=== PATIENT | female | born 1950 | race Caucasian/White ===

== ENCOUNTER → 2017-01-31 | Outpatient (CLI) | payer OTHER ==
[2017-01-07 22:38] VITALS: BP 119/72
--- NOTE | 2017-01-31 10:40 | RAD ---
HISTORY: Bilateral knee pain, fell 1 month ago Study: Two views right knee Comparison: None Findings: Normal alignment. No acute fracture or dislocation. The soft tissues are unremarkable. There are mi ld to moderate osteoarthritic changes present, with medial joint space narrowing and probable subcho ndral cystic changes. No joint effusion. IMPRESSION: 1. Degenerative changes of the right knee without acute abnormality Reported By:
--- NOTE | 2017-01-31 10:43 | RAD ---
HISTORY: Bilateral pain and swelling, fell 1 month ago Study: Three views left foot Comparison: None Findings: Normal alignment. No acute fracture or dislocation. The soft tissues are unremarkable. There are de generative changes at the 1st MTP joint. There is moderate calcaneal spurring. IMPRESSION: 1. Degenerative changes of the 1st MTP joint and moderate calcaneal spurring. No acute osseous abnor mality identified. Reported By:
--- NOTE | 2017-01-31 10:43 | RAD ---
HISTORY: Bilateral pain and swelling, fell 1 month ago Study: Three views right foot Comparison: None Findings: Normal alignment. No acute fracture or dislocation. The soft tissues are unremarkable. There are de generative changes of the 1st MTP joint and moderate calcaneal spurring noted. IMPRESSION: 1. Degenerative changes of the 1st MTP joint and moderate calcaneal spurring. No acute osseous abnor mality identified. Reported By:
--- NOTE | 2017-01-31 10:45 | RAD ---
HISTORY: Bilateral pain, fell 1 month ago Study: Left knee radiographs Comparison: None Findings: Normal alignment. No acute fracture or dislocation. The soft tissues are unremarkable. There are mi ld to moderate degenerative changes present with joint space narrowing in the medial compartment. IMPRESSION: 1. Mild to moderate degenerative changes without acute osseous abnormality. Reported By:
== END ==
LOC: RAD 09:26
PROVIDERS: ATTEND Physician Assistant
DX: M79.671 Pain in right foot (principal); M79.672 Pain in left foot; M25.561 Pain in right knee; M25.562 Pain in left knee
CPT/HCPCS: 73564; 73630

== ENCOUNTER → 2017-02-08 | Outpatient (CLI) | payer OTHER ==
[2017-01-07 22:38] VITALS: BP 119/72
--- NOTE | 2017-02-09 09:27 | MRI ---
HISTORY: Radiculopathy, low back pain Study: MRI lumbar spine without contrast Comparison: Rate radiograph 09/07/2011 Technique: Multiplanar multi-sequence MRI of the lumbar spine was obtained. Sagittal T1, sagittal T 2, and stir weighted images, axial T1, and axial T2 images were obtained. Findings: There is mild levo curvature of the lumbar spine. No abnormal cord or marrow signal identified. The conus of the cord terminates normally. There are postsurgical changes noted with unilateral left t ranspedicular screws at L4 and L5 with intervertebral disc spacer. Vertebral body heights are preser maria a. There is multilevel spondylosis and disc desiccation throughout the lumbar spine and visualized thoracic spine. T12 -- L1: No significant stenosis identified. L1 -- L2: There is a broad-based disc bulge and mild to moderate facet degenerative changes without significant stenosis identified. L2 -- L3: There is a broad-based disc bulge asymmetric to the right and moderate facet hypertrophic changes resulting in moderate right lateral recess and foraminal stenosis. L3 -- L4: There is a left transpedicular screw at L4 with associated susceptibility artifact at this level. There are facet degenerative changes as well as a broad-based disc bulge at this level. Ther e is mild to moderate right foraminal narrowing. L4 -- L5: There is disc spacer noted at this level. There is a left transpedicular screw at L5. No s ignificant stenosis identified. L5 -- S1: Facet degenerative changes and disc desiccation at this level without significant stenosis identified. IMPRESSION: 1. Postsurgical changes at L4-5 with unilateral left transpedicular screws and intervertebral disc s pacer in place. 2. Multilevel spondylosis and facet arthropathy with moderate right lateral recess and foraminal kofi nosis at L2-L3 and mild to moderate right foraminal stenosis at L3-L4. Reported By:
== END ==
LOC: RAD 09:53
PROVIDERS: ATTEND Orthopaedic Surgery Sports Medicine
DX: M54.16 Radiculopathy, lumbar region (principal)
CPT/HCPCS: 72148

== ENCOUNTER 2017-08-16 12:12 | Day surgery (SDC) | payer OTHER ==
[2017-08-16] MEDS ORDERED: NS 500 ML IV 500 ML IV ONE (12:29)
[2017-08-16] MEDS ORDERED: TETRACAINE 0.5% OPHTH 1 DOSE AFFEYE ONE ×5 (12:35→15:59)
[2017-08-16] MEDS ORDERED: VIGAMOX 0.5% OPHTH 1 DOSE AFFEYE ONE ×4 (12:36→16:07)
[2017-08-16] MEDS ORDERED: PROLENSA OPHTH 1 DOSE AFFEYE ONE (12:47)
[2017-08-16] MEDS ORDERED: ALPHAGAN-P OPHTH 1 DOSE AFFEYE ONE (12:48)
[2017-08-16] MEDS ORDERED: MYDRIACIL OPHTH 1 DOSE AFFEYE ONE ×4 (12:49→12:52)
[2017-08-16] MEDS ORDERED: AK-DILATE 2.5% OPHTH 1 DOSE OP ONE ×4 (12:49→12:52)
[2017-08-16] MEDS ORDERED: CYCLOGYL 1% OPHTH 1 DOSE OP ONE ×4 (12:49→12:52)
[2017-08-16] MEDS: VERSED ONE ×2 (15:13→15:34)
[2017-08-16] MEDS ORDERED: AK-DILATE 10% OPHTH 1 DOSE AFFEYE ONE (15:39)
[2017-08-16] MEDS ORDERED: BETADINE OPHTH SOLN 5% EACHEYE ONE (15:50)
[2017-08-16] MEDS ORDERED: DIPRIVAN VIAL ONE (15:55)
[2017-08-16] MEDS ORDERED: ADRENALINE CHL INJ IR ONE (16:01)
[2017-08-16] MEDS ORDERED: VISCOAT 0.5 ML IO ONE (16:01)
[2017-08-16] MEDS ORDERED: BSS OPHTH (PLAIN) 500 ML with VANCOMYCIN HCL 500 MG VIAL 25 MG, ADRENALINE CHL INJ 1 MG IR ONE ×3 (16:01)
[2017-08-16] MEDS ORDERED: XYLOCAINE-MPF 1% IJ ONE (16:01)
[2017-08-16] MEDS ORDERED: DUOVISC IO ONE (16:01)
[2017-08-16 16:36] VITALS: BP 137/66
== END 2017-08-16 16:40 | disposition home or self-care (01) ==
LOC: SURG1 12:12
PROVIDERS: ATTEND Ophthalmology
PROC: 08DK3ZZ Extraction of Left Lens, Percutaneous Approach (ICD-10-PCS; principal; 2017-08-16 20:45)
PROC: 08RK3JZ Replacement of Left Lens with Synthetic Substitute, Percutaneous Approach (ICD-10-PCS; principal; 2017-08-16 20:45)
DX: H25.12 Age-related nuclear cataract, left eye (principal); H25.012 Cortical age-related cataract, left eye; H52.222 Regular astigmatism, left eye
CPT/HCPCS: A4217; J0170; J2250; J3370; J3490

== ENCOUNTER 2017-08-28 14:35 | Emergency (ER) | payer OTHER ==
[2017-08-28 14:51] VITALS: BP 184/81; BMI 29.7
--- NOTE | 2017-08-28 15:41 | DR.GENAD ---
HPI - PCP Primary Care Physician: DR. MATTHEW - HPI Comment HPI Comment: Rt. rib pain - Complaint/Symptoms Chief Complaint:: PT STATES "THIS MORNING AROUND 10 I WENT TO WALK INTO THE [facility] AND I WENT TO STEP UP THE STAIRS AND I MISSED THE STEP, I FELL ON MY RIGHT SIDE AND LANDED ON MY LEFT. RIGHT NOW ITS HURTING ON MY RIBS THE MOST AND ITS GETTING HARDER TO BREATHE." She typically takes Hydrocone at home BID for spinal OA. She had taken a dose earlier today prior to the fall at [facility]. - Nurses notes reviewed Nurses Notes Review: Yes - Source History Provided: Patient, Family Member - Mode of Arrival Mode of Arrival: Ambulatory - Timing Onset of Chief Complaint: 08/28/17 Came on: Suddenly - Location Location: right upper ribs - Severity Severity: Severe - Modifying Factors Worsens:: movement, deep inspirations Improves:: staying still - Associated Signs and Symptoms Associated Signs and Symptoms: none PMH - PMH Past Medical History: Yes Past Medical History: Arthritis, COPD, CVA, Depression, Hypertension Past Surgical History: Yes Surgical History: Ortho Surgery Past Surgical History Comment: CATARACT REMOVAL LEFT EYE - Family History History of Family Medical Conditions: Yes Family Medical History: Cancer, [place] - Social History Does patient currently use any type of tobacco product: Yes Have you used tobacco products in the last 12 months: Yes Type of Tobacco Use: Cigarettes How many years tobacco product used: 40 Does any household member use tobacco: Yes Alcohol Use: None Do you use any recreational Drugs:: No Lives With: Family Lives Where: Home - infectious screening In the last 2 months have you had wt loss of >10#?: NO Have you had fever, night sweats or hemotysis?: No Have you traveled outside the country in the last 6 months?: No Isolation: Standard ROS - Review of Systems Eyes: No Symptoms Reported ENTM: No Symptoms Reported Respiratoy: No Symptoms Reported Cardiovascular: No Symptoms Reported Gastrointestinal/Abdominal: No Symptoms Reported Genitourinary: No Symptoms Reported Neurological: No Symptoms Reported Musculoskeletal: Rib(s) Integumentary: No Symptoms Reported Hematologic/Lymphatic: No Symptoms Reported Endocrine: No Symptoms Reported Psychiatric: No Symptoms Reported All Other Systems: Reviewed and Negative PE - Vital Signs Vitals: Temperature 97.7 F Pulse Rate 54 Respiratory Rate 24 Blood Pressure [Left Arm] 119/72 Blood Pressure [Right Arm] 141/64 Blood Pressure 184/81 O2 Sat by Pulse Oximetry 100 - General Limitations: No Limitations General Appearance: Alert, Other (pain related distress) - Head Head Exam: Normal Inspection - Eyes Eye exam: Normal Appearance, PERRL, EOMI - ENT ENT Exam: Normal Exam - Neck Neck Exam: Normal Inspection, Full ROM - Chest Chest Inspection: Normal Inspection, Symmetric Chest Wall Rise, Tenderness ( upper right ribs at anterior axillary line.) - Respiratory Respiratory Exam: Normal Lung Sounds Bilat - Cardiovascular Cardiovascular Exam: Regular Rate, Normal Rhythm - Abdominal Exam Abdominal Exam: Normal Inspection, Normal Bowel Sounds, Soft - Extremities Extremities Exam: Normal Inspection - Back Back Exam: Normal Inspection - Neurologic Neurological Exam: Alert, Oriented X3 - Psychiatric Psychiatric Exam: Normal Affect, Normal Mood - Skin Skin Exam: Warm, Dry, Intact, Normal Color Course - Education/Counseling Education/Counseling: Patient, Family Educated On: Treatment, Diagnosis, Prognosis, Needs for Follow Up ROR - XRAY XRAY Interpreted by: Radiologist (right rib series: no fracture) - Diagnosis Discharge Problem: Rib pain - Discharge Plan Disposition: 01 HOME, SELF-CARE Condition: Good - Follow ups/Referrals Follow ups/Referrals: Devin MATTHEW [Primary Care Provider] - 3 days - Instructions Instructions: Rib Contusion Additional Instructions: WEAR AMBER WRAP NEEDED FOR PAIN. FOLLOW UP WITH PRIMARY CARE DOCTOR IN 2-3 DAYS NEEDED.
[2017-08-28] MEDS ORDERED: NUBAIN INJ 10 IM ONE (16:05)
[2017-08-28] MEDS ORDERED: NUBAIN INJ 10 ONE (16:07)
--- NOTE | 2017-08-28 16:29 | RAD ---
HISTORY: 67-year-old female status post fall with right-sided rib pain. Study: Frontal view of the chest with four views of the ribs. Comparison: Chest radiograph 01/07/2017 Findings: The trachea is midline. The cardiac silhouette is unremarkable. The lungs are clear without focal c onsolidation, effusion or pneumothorax. Soft tissues are unremarkable. Osseous structures are unrema rkable. No radiographic evidence of rib fracture. IMPRESSION: 1. No acute cardiopulmonary disease. 2. No radiographic evidence of rib fracture. Reported By:
== END 2017-08-28 16:56 | disposition home or self-care (01) ==
LOC: ER 14:48
DX: R07.89 Other chest pain (principal)
CPT/HCPCS: 71111; 96372; 99282; 99283; J2300

== ENCOUNTER 2017-09-20 06:53 | Day surgery (SDC) | payer OTHER ==
[2017-09-20] MEDS ORDERED: TETRACAINE 0.5% OPHTH 1 DOSE AFFEYE ONE ×4 (07:00→10:23)
[2017-09-20] MEDS ORDERED: VIGAMOX 0.5% OPHTH 1 DOSE AFFEYE ONE ×5 (07:05→10:59)
[2017-09-20] MEDS ORDERED: PROLENSA OPHTH 1 DOSE AFFEYE ONE (07:16)
[2017-09-20] MEDS ORDERED: ALPHAGAN-P OPHTH 1 DOSE AFFEYE ONE (07:17)
[2017-09-20] MEDS ORDERED: CYCLOGYL 1% OPHTH 1 DOSE OP ONE ×3 (07:18→07:20)
[2017-09-20] MEDS ORDERED: MYDRIACIL OPHTH 1 DOSE AFFEYE ONE ×3 (07:18→07:20)
[2017-09-20] MEDS ORDERED: AK-DILATE 2.5% OPHTH 1 DOSE OP ONE ×3 (07:18→07:20)
[2017-09-20] MEDS ORDERED: NS 1/2 1000 ML IV 1,000 ML IV ONE (07:30)
[2017-09-20] MEDS ORDERED: VERSED ONE ×2 (07:43→10:45)
[2017-09-20] MEDS ORDERED: VERSED IVP ONE ×4 (07:58→10:25)
[2017-09-20] MEDS ORDERED: AK-DILATE 10% OPHTH 1 DOSE AFFEYE ONE ×2 (08:00→10:26)
[2017-09-20] MEDS ORDERED: BETADINE OPHTH SOLN 5% EACHEYE ONE (10:29)
[2017-09-20] MEDS ORDERED: ADRENALINE CHL INJ IJ ONE ×2 (10:44→10:48)
[2017-09-20] MEDS ORDERED: XYLOCAINE-MPF 1% IJ ONE ×2 (10:44→10:48)
[2017-09-20] MEDS ORDERED: DUOVISC IO ONE ×2 (10:44→10:48)
[2017-09-20] MEDS ORDERED: BSS OPHTH (PLAIN) 500 ML with VANCOMYCIN HCL 500 MG VIAL 25 MG, ADRENALINE CHL INJ 1 MG IR ONE ×6 (10:45)
[2017-09-20 11:20] VITALS: BP 150/70
== END 2017-09-20 11:23 | disposition home or self-care (01) ==
LOC: SURG1 06:53
PROVIDERS: ATTEND Ophthalmology
PROC: 08DJ3ZZ Extraction of Right Lens, Percutaneous Approach (ICD-10-PCS; principal; 2017-09-20 10:30)
PROC: 08RJ3JZ Replacement of Right Lens with Synthetic Substitute, Percutaneous Approach (ICD-10-PCS; principal; 2017-09-20 10:30)
DX: H25.11 Age-related nuclear cataract, right eye (principal); H25.011 Cortical age-related cataract, right eye; H52.211 Irregular astigmatism, right eye
CPT/HCPCS: A4217; J0170; J2250; J3370

== ENCOUNTER 2017-11-13 16:55 | Inpatient (IN) | payer OTHER ==
[2017-11-13] MEDS ORDERED: NORMODYNE INJ 20 MG VIAL ONE ×2 (17:04→17:37)
[2017-11-13] MEDS ORDERED: NITROSTAT SL ONE (17:05)
[2017-11-13] MEDS: NITROSTAT SL PRN ×3 (17:07→17:22)
[2017-11-13] MEDS ORDERED: ASPIRIN 81 MG CHEWTAB ONE (17:28)
[2017-11-13] MEDS ORDERED: ASPIRIN 81 MG CHEWTAB PO ONE (17:28)
[2017-11-13 17:34] LABS: BASOPHILS # (AUTO) 0.1 X10^3/uL (0.0-0.1); BASOPHILS % (AUTO) 0.9 % (0.2-1.0); EOSINOPHILS # (AUTO) 0.1 x10^3/uL (0.0-0.2); EOSINOPHILS % (AUTO) 0.8 % (0.9-2.9); HEMATOCRIT 42.6 % (36.0-47.0); HEMOGLOBIN 14.2 g/dL (12.0-16.0); LYMPHOCYTES # (AUTO) 3.1 X10^3/uL (1.3-2.9); LYMPHOCYTES % (AUTO) 31.8 % (21.0-51.0); MEAN CORPUSCULAR HEMOGLOBIN 28.8 pg (27.0-34.0); MEAN CORPUSCULAR HGB CONC 33.4 g/dL (33.0-35.0); MEAN CORPUSCULAR VOLUME 86.2 fL (80.0-100.0); MEAN PLATELET VOLUME 8.2 fL (7.4-11.0); MONOCYTES # (AUTO) 0.5 x10^3/uL (0.3-0.8); MONOCYTES % (AUTO) 5.3 % (0.0-13.0); NEUTROPHILS % (AUTO) 61.2 % (42.0-75.0); PLATELET COUNT 289 X10^3/uL (150.0-450.0); RED BLOOD COUNT 4.94 X10^6/uL (3.5-5.4); RED CELL DISTRIBUTION WIDTH 15.6 % (11.6-16.5); WHITE BLOOD COUNT 9.9 X10^3/uL (3.6-10.0)
[2017-11-13] MEDS ORDERED: NORMODYNE INJ 20 MG VIAL IVP ONE (17:36)
--- NOTE | 2017-11-13 17:40 | RAD ---
Examination: Portable AP chest History: Chest pain Comparison 08/28/2017. Findings: Continued normal heart size with clear lungs and pleural spaces. Impression: No change; no acute disease. Reported By:
[2017-11-13 17:47] LABS: BLOOD UREA NITROGEN 7 mg/dL (7-18); CALCIUM 9.7 mg/dL (8.5-10.1); CARBON DIOXIDE 28.3 mmol/L (21-32); CHLORIDE 104 mmol/L (98-107); CREATININE 0.93 mg/dL (0.55-1.02); SODIUM 140 mmol/L (136-145); TROPONIN I < 0.02 ng/mL (0-1.5); eGFR BLACK RACES > 60 (>60); eGFR NON BLACK RACES > 60 (>60)
[2017-11-13 17:51] LABS: ALANINE AMINOTRANSFERASE 18 Units/L (12-78); ALBUMIN 3.7 g/dL (3.4-5.0); ALKALINE PHOSPHATASE 137 Units/L (46-116); ASPARTATE AMINO TRANSFERASE 16 Units/L (15-37); CKMB % 1.4 % (<4); CREATINE KINASE 70 Units/L (26-192); TOTAL PROTEIN 7.2 g/dL (6.4-8.2)
--- NOTE | 2017-11-13 18:30 | DR.CP ---
HPI - Time Seen Time seen: 17:50 - PCP Primary Care Physician: TIFF - Complaint Chief Complaint Doctor Comments: Patient presents stating that she has chest is hurting, has a headache and lots of stress. She states that she helps with her daughter children who has lost her job, her son son was layed off his job after Thanksgiving. She reports that she has no history of heart disease;admits to COPD and back pain. Her blood pressure 236/105 Chief Complaint:: PT. C/O RIGHT SIDED CHEST PAIN X 3 WEEKS WHICH WORSENED TODAY. PT. STATES THE PAIN RADIATES DOWN HER RIGHT ARM AND HER RIGHT HAND IS TINGLING. PT. STATES "IT FEELS LIKE A TON OF BRICKS ON MY CHEST." - Source History Provided: Patient - Mode of Arrival Mode of Arrival: Ambulatory - Timing Onset of Chief Complaint: 10/23/17 PMH - PMH Past Medical History: Yes Past Medical History: Arthritis, COPD, CVA, Depression, Hypertension Past Surgical History: Yes Surgical History: Ortho Surgery - Family History History of Family Medical Conditions: Yes Family Medical History: Cancer, [place] - Social History Does patient currently use any type of tobacco product: Yes Have you used tobacco products in the last 12 months: Yes Type of Tobacco Use: Cigarettes Does any household member use tobacco: No Alcohol Use: None Do you use any recreational Drugs:: No Lives With: Family Lives Where: Home - infectious screening In the last 2 months have you had wt loss of >10#?: NO Have you had fever, night sweats or hemotysis?: No Have you traveled outside the country in the last 6 months?: No Isolation: Standard ROS - Review of Systems Constitutional: No Symptoms Reported Eyes: No Symptoms Reported ENTM: No Symptoms Reported Respiratoy: No Symptoms Reported Cardiovascular: No Symptoms Reported Gastrointestinal/Abdominal: No Symptoms Reported Genitourinary: No Symptoms Reported Neurological: No Symptoms Reported Musculoskeletal: No Symptoms Reported Integumentary: No Symptoms Reported Hematologic/Lymphatic: No Symptoms Reported Endocrine: No Symptoms Reported Psychiatric: No Symptoms Reported All Other Systems: Reviewed and Negative PE - Vitals Vitals: Temperature 97.7 F Pulse Rate [Apical] 65 Pulse Rate 96 Respiratory Rate 22 Blood Pressure [Left Arm] 119/72 Blood Pressure [Right Arm] 200/90 Blood Pressure 236/109 O2 Sat by Pulse Oximetry 98 - General Limitations: No Limitations General Appearance: Alert, In No Apparent Distress - Head Head Exam: Normal Inspection, Atraumatic - Eyes Eye exam: Normal Appearance, PERRL, EOMI - ENT ENT Exam: Normal Exam - Chest Chest Inspection: Normal Inspection - Respiratory Respiratory Exam: Normal Lung Sounds Bilat Respiratory Exam: Bilateral Clear to Auscultation - Cardiovascular Cardiovascular Exam: Regular Rate, Normal Rhythm Pulse: Normal Edema: Normal - Abdominal Exam Abdominal Exam: Normal Inspection Abdominal Tenderness: negative: RUQ, RLQ, LUQ, LLQ, Epigastrium, Suprapubic, Diffuse, Mild, Moderate, Severe, Other - Extremities Extremities Exam: Normal Inspection, Full ROM - Back Back Exam: Normal Inspection, Full ROM - Neurologic Neurological Exam: Alert, Oriented X3, CN II-XII Intact - Psychiatric Psychiatric Exam: Normal Affect - Skin Skin Exam: Warm, Dry, Intact Course - Treatment Treatment: Patient blood pressure has been fluctuating; not controlled on parenterial pressure management. - Reevaluation 1st: Unchanged - Consultation Called: 18:30 (Dr Ortega agreed to genna for further management) ROR - Labs Reviewed Result Diagrams: 11/13/17 17:05 11/13/17 17:05 Laboratory: WBC 9.9 X10^3/uL (3.6-10.0) 11/13/17 17:05 RBC 4.94 X10^6/uL (3.5-5.4) 11/13/17 17:05 Hgb 14.2 g/dL (12.0-16.0) 11/13/17 17:05 Hct 42.6 % (36.0-47.0) 11/13/17 17:05 MCV 86.2 fL (80.0-100.0) 11/13/17 17:05 MCH 28.8 pg (27.0-34.0) 11/13/17 17:05 MCHC 33.4 g/dL (33.0-35.0) 11/13/17 17:05 RDW 15.6 % (11.6-16.5) 11/13/17 17:05 Plt Count 289 X10^3/uL (150.0-450.0) 11/13/17 17:05 MPV 8.2 fL (7.4-11.0) 11/13/17 17:05 Neut % 61.2 % (42.0-75.0) 11/13/17 17:05 Lymph % 31.8 % (21.0-51.0) 11/13/17 17:05 [place] % 5.3 % (0.0-13.0) 11/13/17 17:05 Eos % 0.8 % (0.9-2.9) L 11/13/17 17:05 Baso % 0.9 % (0.2-1.0) 11/13/17 17:05 Neut # 6.0 x10^3/uL (2.2-4.8) H 11/13/17 17:05 Lymph # 3.1 X10^3/uL (1.3-2.9) H 11/13/17 17:05 [place] # 0.5 x10^3/uL (0.3-0.8) 11/13/17 17:05 Eos # 0.1 x10^3/uL (0.0-0.2) 11/13/17 17:05 Baso # 0.1 X10^3/uL (0.0-0.1) 11/13/17 17:05 Absolute Nucleated RBC 0.1 /100WBC 11/13/17 17:05 INR Target Range - 11/13/17 17:05 INR 0.96 (0.8-1.3) 11/13/17 17:05 PTT 29.9 SECONDS (22.9-36.5) 11/13/17 17:05 PTT Comment - 11/13/17 17:05 D-Dimer 159 ng/mL (0-400) 11/13/17 17:05 Sodium 140 mmol/L (136-145) 11/13/17 17:05 Corrected Sodium TNP 11/13/17 17:05 Potassium 3.7 mmol/L (3.5-5.1) 11/13/17 17:05 Chloride 104 mmol/L (98-107) 11/13/17 17:05 Carbon Dioxide 28.3 mmol/L (21-32) 11/13/17 17:05 BUN 7 mg/dL (7-18) 11/13/17 17:05 Creatinine 0.93 mg/dL (0.55-1.02) 11/13/17 17:05 Est GFR (MDRD) Af Amer > 60 (>60) 11/13/17 17:05 Est GFR (MDRD) Non-Af > 60 (>60) 11/13/17 17:05 Glucose 96 mg/dL (65-99) 11/13/17 17:05 Calcium 9.7 mg/dL (8.5-10.1) 11/13/17 17:05 Corrected Calcium TNP 11/13/17 17:05 Total Bilirubin 0.40 mg/dL (0.2-1.0) 11/13/17 17:05 AST 16 Units/L (15-37) 11/13/17 17:05 ALT 18 Units/L (12-78) 11/13/17 17:05 Alkaline Phosphatase 137 Units/L (46-116) H 11/13/17 17:05 Creatine Kinase 70 Units/L (26-192) 11/13/17 17:05 CK-MB (CK-2) 1.0 ng/mL (0-4.0) 11/13/17 17:05 CK/CKMB % Calc 1.4 % (<4) 11/13/17 17:05 Troponin I < 0.02 ng/mL (0-1.5) 11/13/17 17:05 Total Protein 7.2 g/dL (6.4-8.2) 11/13/17 17:05 Albumin 3.7 g/dL (3.4-5.0) 11/13/17 17:05 Globulin 3.5 g/dL (2.5-4.5) 11/13/17 17:05 Albumin/Globulin Ratio 1.1 Ratio (1.1-2.1) 11/13/17 17:05 - XRAY XRAY Interpreted by: Radiologist (Chest: No acute disease) - EKG Compared to prior EKG Dated: 01/07/17 (No significant change) - Diagnosis Discharge Problem: Hypertensive urgency - Discharge Plan Condition: Stable - Follow ups/Referrals Follow ups/Referrals: Devin MTATHEW [Primary Care Provider] - 3 days - Instructions
[2017-11-13] MEDS ORDERED: MORPHINE SULFATE INJ 10 MG IVP ONE (19:20)
[2017-11-13] MEDS ORDERED: DEMEROL INJ IVP ONE (19:23)
[2017-11-13] MEDS ORDERED: DEMEROL INJ ONE (19:25)
[2017-11-13] MEDS ORDERED: NS 250 ML IV 250 ML IV ONE (19:44)
[2017-11-13] MEDS ORDERED: NORMODYNE INJ 100 MG VIAL ONE ×2 (19:46→19:49)
[2017-11-13] MEDS: NORMODYNE INJ 100 MG VIAL 250 MG in NS 250 ML IV 200 ML IV PRN (19:57)
[2017-11-13 22:07] LABS: BILIRUBIN,URINE NEGATIVE (NEGATIVE); BLOOD/HEMOGLOBIN,URINE 2+ (NEGATIVE); GLUCOSE, URINE NEGATIVE (NEGATIVE); KETONES,URINE 1+ (NEGATIVE); LEUKOCYTE ESTERASE ,URINE 1+ (NEGATIVE); NITRITES,URINE NEGATIVE (NEGATIVE); PROTEIN,URINE NEGATIVE (NEGATIVE); UROBILINOGEN,URINE 1+ (NORMAL)
[2017-11-13] MEDS ORDERED: NS 1/2 1000 ML IV 1,000 ML IV ONE (22:09)
[2017-11-13 22:19] LABS: APPEARANCE,URINE CLEAR (CLEAR); BACTERIA,URINE NEGATIVE /HPF (NEGATIVE); COLOR,URINE YELLOW (YELLOW); SQUAMOUS EPITHELIAL CELL,UR FEW /HPF (NEGATIVE)
[2017-11-13 22:51] VITALS: BMI 25.4
[2017-11-13] MEDS ORDERED: PREVNAR 13 IM ONE (22:51)
[2017-11-13] MEDS: NS 1/2 1000 ML IV 1,000 ML IV SCH (23:01)
[2017-11-13 23:09] LABS: CREATINE KINASE 51 Units/L (26-192); CREATINE KINASE MB < 1.0 ng/mL (0-4.0); TROPONIN I < 0.02 ng/mL (0-1.5)
[2017-11-14] MEDS: NORMODYNE INJ 100 MG VIAL 250 MG in NS 250 ML IV 200 ML IV PRN ×3 (00:06→08:48)
[2017-11-14 06:27] LABS: BASOPHILS % (AUTO) 0.7 % (0.2-1.0); EOSINOPHILS # (AUTO) 0.1 x10^3/uL (0.0-0.2); EOSINOPHILS % (AUTO) 1.4 % (0.9-2.9); HEMATOCRIT 36.3 % (36.0-47.0); HEMOGLOBIN 12.2 g/dL (12.0-16.0); LYMPHOCYTES % (AUTO) 31.3 % (21.0-51.0); MEAN CORPUSCULAR HGB CONC 33.5 g/dL (33.0-35.0); MEAN CORPUSCULAR VOLUME 86.4 fL (80.0-100.0); MEAN PLATELET VOLUME 8.4 fL (7.4-11.0); MONOCYTES # (AUTO) 0.4 x10^3/uL (0.3-0.8); NEUTROPHILS # (AUTO) 3.9 x10^3/uL (2.2-4.8); NEUTROPHILS % (AUTO) 60.6 % (42.0-75.0); PLATELET COUNT 232 X10^3/uL (150.0-450.0); RED CELL DISTRIBUTION WIDTH 15.5 % (11.6-16.5); WHITE BLOOD COUNT 6.4 X10^3/uL (3.6-10.0)
[2017-11-14 06:32] LABS: ALANINE AMINOTRANSFERASE 15 Units/L (12-78); ALKALINE PHOSPHATASE 108 Units/L (46-116); ASPARTATE AMINO TRANSFERASE 14 Units/L (15-37); BLOOD UREA NITROGEN 8 mg/dL (7-18); CALCIUM 8.7 mg/dL (8.5-10.1); CARBON DIOXIDE 25.2 mmol/L (21-32); CHLORIDE 107 mmol/L (98-107); CKMB % 1.7 % (<4); COR CA(FOR HYPOALB) 9.5 mg/dL (8.5-10.1); CREATINE KINASE 59 Units/L (26-192); CREATINE KINASE MB < 1.0 ng/mL (0-4.0); CREATININE 0.83 mg/dL (0.55-1.02); MAGNESIUM 1.8 mg/dL (1.7-2.9); SODIUM 142 mmol/L (136-145); TOTAL PROTEIN 5.9 g/dL (6.4-8.2); TROPONIN I < 0.02 ng/mL (0-1.5); eGFR BLACK RACES > 60 (>60); eGFR NON BLACK RACES > 60 (>60)
--- NOTE | 2017-11-14 07:23 | RAD ---
Examination: Portable AP chest History: Chest pain Comparison 11/13/2017 Findings: Continued normal heart size with clear lungs and pleural spaces. Impression no change separate acute disease demonstrated. Reported By:
[2017-11-14] MEDS: NORCO 10/325 TAB PO SCH ×4 (08:04→20:40)
[2017-11-14] MEDS: XANAX PO SCH ×2 (08:05→20:40)
[2017-11-14] MEDS ORDERED: NS 250 ML IV 250 ML IV ONE (08:43)
[2017-11-14] MEDS ORDERED: ZESTRIL TAB 20 MG ONE (12:29)
[2017-11-14] MEDS: ASPIRIN EC 81 MG PO SCH (12:35)
[2017-11-14] MEDS: ZESTRIL TAB 20 MG PO SCH (12:36)
[2017-11-14] MEDS ORDERED: MILK OF MAGNESIA PO PRN (13:00)
[2017-11-14] MEDS ORDERED: PHENERGAN TAB 25 MG PO PRN (15:21)
[2017-11-14] MEDS: CATAPRES TAB 0.2 MG PO SCH (20:40)
[2017-11-14] MEDS: COLACE CAP 100 MG PO SCH ×2 (21:00)
[2017-11-14] MEDS: NS 1/2 1000 ML IV 1,000 ML IV SCH (21:00)
[2017-11-15] MEDS ORDERED: ZESTRIL TAB 20 MG ONE (08:57)
[2017-11-15] MEDS ORDERED: ZESTRIL TAB 20 MG PO SCH (09:00)
[2017-11-15] MEDS: XANAX PO SCH ×2 (09:01→20:52)
[2017-11-15] MEDS: ZESTRIL TAB 20 MG PO SCH (09:01)
[2017-11-15] MEDS: CATAPRES TAB 0.2 MG PO SCH (09:02)
[2017-11-15] MEDS: NORCO 10/325 TAB PO SCH ×4 (09:02→20:53)
[2017-11-15] MEDS: ASPIRIN EC 81 MG PO SCH (09:02)
[2017-11-15] MEDS ORDERED: ZESTRIL TAB 10 MG PO ONE (09:18)
[2017-11-15] MEDS: CATAPRES TAB 0.3 MG PO SCH ×2 (17:33→23:29)
[2017-11-15] MEDS: COLACE CAP 100 MG PO SCH (20:52)
[2017-11-16] MEDS ORDERED: ZESTRIL TAB 20 MG ONE (07:16)
[2017-11-16] MEDS: NORCO 10/325 TAB PO SCH ×4 (08:11→20:53)
[2017-11-16] MEDS: XANAX PO SCH ×2 (08:12→20:52)
[2017-11-16] MEDS: CATAPRES TAB 0.3 MG PO SCH ×2 (08:12→20:53)
[2017-11-16] MEDS: ASPIRIN EC 81 MG PO SCH (08:13)
[2017-11-16] MEDS ORDERED: ZESTRIL TAB 20 MG PO SCH (09:00)
[2017-11-16] MEDS ORDERED: ZESTRIL TAB 10 MG PO NR (10:00)
[2017-11-16] MEDS: NORVASC TAB 10 MG PO SCH (15:09)
[2017-11-16] MEDS: ZANTAC PO SCH (15:10)
[2017-11-16] MEDS: PriLOSEC PO SCH (15:10)
[2017-11-16] MEDS ORDERED: DIOVAN TAB 160 MG PO ONE (18:09)
[2017-11-16] MEDS: COLACE CAP 100 MG PO SCH (20:53)
[2017-11-17 05:57] LABS: BASOPHILS % (AUTO) 0.6 % (0.2-1.0); EOSINOPHILS # (AUTO) 0.2 x10^3/uL (0.0-0.2); EOSINOPHILS % (AUTO) 3.3 % (0.9-2.9); HEMATOCRIT 35.5 % (36.0-47.0); HEMOGLOBIN 11.8 g/dL (12.0-16.0); LYMPHOCYTES # (AUTO) 2.7 X10^3/uL (1.3-2.9); LYMPHOCYTES % (AUTO) 36.3 % (21.0-51.0); MEAN CORPUSCULAR HEMOGLOBIN 29.1 pg (27.0-34.0); MEAN CORPUSCULAR HGB CONC 33.3 g/dL (33.0-35.0); MEAN CORPUSCULAR VOLUME 87.4 fL (80.0-100.0); MEAN PLATELET VOLUME 7.9 fL (7.4-11.0); MONOCYTES # (AUTO) 0.4 x10^3/uL (0.3-0.8); NEUTROPHILS % (AUTO) 53.8 % (42.0-75.0); PLATELET COUNT 216 X10^3/uL (150.0-450.0); RED BLOOD COUNT 4.06 X10^6/uL (3.5-5.4); RED CELL DISTRIBUTION WIDTH 15.3 % (11.6-16.5); WHITE BLOOD COUNT 7.5 X10^3/uL (3.6-10.0)
[2017-11-17 06:04] LABS: ALANINE AMINOTRANSFERASE 16 Units/L (12-78); ALBUMIN 2.7 g/dL (3.4-5.0); ALKALINE PHOSPHATASE 94 Units/L (46-116); ASPARTATE AMINO TRANSFERASE 11 Units/L (15-37); BLOOD UREA NITROGEN 11 mg/dL (7-18); CALCIUM 8.5 mg/dL (8.5-10.1); CARBON DIOXIDE 28.5 mmol/L (21-32); CHLORIDE 106 mmol/L (98-107); COR CA(FOR HYPOALB) 9.5 mg/dL (8.5-10.1); CREATININE 0.77 mg/dL (0.55-1.02); SODIUM 141 mmol/L (136-145); TOTAL PROTEIN 5.6 g/dL (6.4-8.2); eGFR BLACK RACES > 60 (>60); eGFR NON BLACK RACES > 60 (>60)
[2017-11-17] MEDS: ASPIRIN EC 81 MG PO SCH (08:55)
[2017-11-17] MEDS: NORVASC TAB 10 MG PO SCH (08:56)
[2017-11-17] MEDS: CATAPRES TAB 0.3 MG PO SCH (08:56)
[2017-11-17] MEDS: NORCO 10/325 TAB PO SCH (08:56)
[2017-11-17] MEDS: PriLOSEC PO SCH (08:56)
[2017-11-17] MEDS: XANAX PO SCH (08:56)
[2017-11-17] MEDS: ZANTAC PO SCH (08:57)
[2017-11-17] MEDS ORDERED: ZESTRIL TAB 40 MG PO SCH (09:00)
[2017-11-17 11:33] VITALS: BP 168/72
[2017-11-17] MEDS ORDERED: PREVNAR 13 IM ONE (11:52)
== END 2017-11-17 12:15 | disposition home health service (06) | DRG 305 ==
LOC: ER 16:55 → ICU 20:16 → UNDOADMIN 20:16 → MED/SURG 11-15 16:02
PROVIDERS: ADMIT Internal Medicine; ATTEND Internal Medicine
PROC: 3E0234Z Introduction of Serum, Toxoid and Vaccine into Muscle, Percutaneous Approach (ICD-10-PCS; principal; 2017-11-17)
DX: I16.0 Hypertensive urgency (principal); R07.89 Other chest pain; R51 Headache; J44.9 Chronic obstructive pulmonary disease, unspecified; M54.89 Other dorsalgia; R94.31 Abnormal electrocardiogram [ECG] [EKG]; Z66 Do not resuscitate; Z23 Encounter for immunization
CPT/HCPCS: 36415; 71045; 80053; 81001; 82550; 82553; 83735; 84484; 85025; 85378; 85610; 85730; 93005; 93010; 94760; 96365; 96374; 96375; 99284; 99285; A4222; Q0169; J2175; J3490

== ENCOUNTER 2018-07-11 18:36 | Observation (INO) ==
--- NOTE | 2018-07-11 19:16 | DR.CP ---
HPI Time Seen Time Seen by Provider: 07/11/18 19:06 PCP Primary Care Physician: kathi HPI Comment HPI Comment: PATINT IS DRAIN FO ENERGY, NO FEVER OR DYSURIA. BP IS ALSO ELEVATED. TOOK CODEINE FOR PAIN BEFORE COMING. CHEST PAIN IS PRECORDIAL PAIN THAT IS NON RADIATING ASSOCIATED WITH SOB. ABDOMINAL PAIN IS DIFFUSE ASSOCIATED WITH NAUSEA. HERE VIA EMS. Complaint Chief Complaint Doctor Comments: CHEST PAIN LOWER ABDOMINAL PAIN AND HEADACHE THAT IS GETTING WORSE. Chief Complaint:: PT STATES" I'M HURTING IN MY CHEST MY LOWER ABD REALLY I'M HURTING ALLOVER. I TOLD DR MATTHEW BUT HE DIDN'T DO ANYTHING. I JUST FEEL TERRIBLE MY HEAD IS KILLING ME I TOOK A CLONIDINE 0.3MG BECAUSE MY BLOOD PRESSURE WAS HIGH" Reviewed Nurses Notes Review: Yes Source History Provided: Patient and Family Member Mode of Arrival Mode of Arrival: EMS Timing Onset of Chief Complaint: 07/04/18 Came on: Gradually Pain: Present Now Duration Duration: Constant Duration: Days Location Location of Chest Pain: Left and Chest Chest Pain Radiation Location: None Context Onset: At rest Cardiac Risk Factors: HTN PE Risk Factors: Immobilization History of: None Prehospital Care: Oxygen Quality Quality: Sharp Severity Severity: Moderate Modifying Factors Worsens: Nothing Impoves: Nothing Associated Signs and Symptoms Associated Signs and Symptoms: Shortness of Breath, Abdominal Pain and Nausea/ Vomiting PMH PMH Past Medical History: Yes Past Medical History: Arthritis, COPD, CVA, Depression and Hypertension Past Surgical History: Yes Surgical History: Ortho Surgery Family History History of Family Medical Conditions: Yes Family Medical History: Cancer, Coronary Artery Disease and Hypertension Social History Type of Tobacco Use: Cigarettes Does any household member use tobacco: No Alcohol Use: None Do you use any recreational Drugs:: No Lives With: Family Lives Where: Home infectious screening In the last 2 months have you had wt loss of >10#?: NO Have you had fever, night sweats or hemotysis?: No Have you traveled outside the country in the last 6 months?: No Isolation: Standard ROS Review of Systems Constitutional: Malaise, Weakness and Fatigue; negative Chills and Fever Eyes: No Symptoms Reported ENTM: No Symptoms Reported Respiratoy: Non-Productive Cough and Short of Breath Cardiovascular: Chest Pain Gastrointestinal/Abdominal: Abdominal Pain Genitourinary: negative Dysuria Neurological: Headache, Weakness and Dizziness Musculoskeletal: Back Pain and Back Integumentary: No Symptoms Reported Hematologic/Lymphatic: Easy Bleeding and Easy Bruising Endocrine: No Symptoms Reported Psychiatric: Other (SLOW SPEECH) All Other Systems: Reviewed and Negative Unable to Obtain Due To: Altered mental status PE Vitals Vitals: Temperature 98.1 F Pulse Rate [Right Brachial] 62 Pulse Rate [Apical] 58 Pulse Rate 63 Respiratory Rate 20 Blood Pressure [Left Arm] 193/79 Blood Pressure [Right Arm] 175/75 Blood Pressure 176/74 O2 Sat by Pulse Oximetry 98 General Limitations: Altered Mental Status General Appearance: Alert and In No Apparent Distress Head Head Exam: Normal Inspection and Atraumatic Eyes Eye exam: Normal Appearance, PERRL and EOMI; negative Scleral Icterus and Conjunctival Injection ENT ENT Exam: Normal Exam, Normal Oropharynx, Normal External Ear Exam, Mucous Membranes Moist and TM's Normal Bilaterally Chest Chest Inspection: Normal Inspection and Symmetric Chest Wall Rise Respiratory Respiratory Exam: Normal Lung Sounds Bilat Respiratory Exam: Bilateral: Rhonchi and Lower: Rhonchi Cardiovascular Cardiovascular Exam: Regular Rate and Normal Rhythm Pulse: Normal, Radial and Femoral Edema: Normal Abdominal Exam Abdominal Exam: Normal Inspection, Normal Bowel Sounds, Soft and Tenderness Abdominal Tenderness: RLQ, LLQ, Suprapubic and Moderate Extremities Extremities Exam: Normal Inspection Back Back Exam: Paraspinal Tenderness Neurologic Neurological Exam: Alert, Oriented X3, CN II-XII Intact and Other (SPEECH SLOW PER DAUGHTER.); negative Motor Sensory Deficit Psychiatric Psychiatric Exam: Anxious Skin Skin Exam: Dry MDM Differential Diagnosis Differential Diagnosis: Angina, Chest Wall Pain, CHF, Costochondritis, Gastritis , Myocardial Infarction, Pericarditis, Pleuritis, Pancreatitis, Pneumonia, Pneumothorax and Pulmonary Embolus COURSE Treatment Treatment: SEE ORDERS. Consultation Consultation Comments: DISCUSS PATIENT WITH DR. PATEL. HE WILL ADMIT PATIENT. Education/Counseling Education/Counseling: Patient, Family and Education Educated On: Diagnosis ROR Labs Reviewed Laboratory Results Reviewed?: Yes Result Diagrams: 07/12/18 04:00 07/12/18 04:00 Laboratory: WBC 7.5 X10^3/uL (3.6-10.0) 07/12/18 04:00 RBC 4.28 X10^6/uL (3.5-5.4) 07/12/18 04:00 Hgb 12.6 g/dL (12.0-16.0) 07/12/18 04:00 Hct 37.1 % (36.0-47.0) 07/12/18 04:00 MCV 86.8 fL (80.0-100.0) 07/12/18 04:00 MCH 29.4 pg (27.0-34.0) 07/12/18 04:00 MCHC 33.8 g/dL (33.0-35.0) 07/12/18 04:00 RDW 15.6 % (11.6-16.5) 07/12/18 04:00 Plt Count 251 X10^3/uL (150.0-450.0) 07/12/18 04:00 MPV 7.8 fL (7.4-11.0) 07/12/18 04:00 Neut % (Auto) 51.0 % (42.0-75.0) 07/12/18 04:00 Lymph % (Auto) 39.0 % (21.0-51.0) 07/12/18 04:00 [place] % (Auto) 6.6 % (0.0-13.0) 07/12/18 04:00 Eos % (Auto) 3.0 % (0.9-2.9) H 07/12/18 04:00 Baso % (Auto) 0.4 % (0.2-1.0) 07/12/18 04:00 Neut # (Auto) 3.8 x10^3/uL (2.2-4.8) 07/12/18 04:00 Lymph # (Auto) 2.9 X10^3/uL (1.3-2.9) 07/12/18 04:00 [place] # (Auto) 0.5 x10^3/uL (0.3-0.8) 07/12/18 04:00 Eos # (Auto) 0.2 x10^3/uL (0.0-0.2) 07/12/18 04:00 Baso # (Auto) 0.0 X10^3/uL (0.0-0.1) 07/12/18 04:00 Absolute Nucleated RBC 0.1 /100WBC 07/12/18 04:00 Sodium 143 mmol/L (136-145) 07/12/18 04:00 Corrected Sodium TNP 07/12/18 04:00 Potassium 4.5 mmol/L (3.5-5.1) 07/12/18 04:00 Chloride 107 mmol/L (98-107) 07/12/18 04:00 Carbon Dioxide 31.9 mmol/L (21-32) 07/12/18 04:00 BUN 7 mg/dL (7-18) 07/12/18 04:00 Creatinine 0.90 mg/dL (0.55-1.02) 07/12/18 04:00 Est GFR (MDRD) Af Amer > 60 (>60) 07/12/18 04:00 Est GFR (MDRD) Non-Af > 60 (>60) 07/12/18 04:00 Glucose 96 mg/dL (65-99) 07/12/18 04:00 Calcium 8.7 mg/dL (8.5-10.1) 07/12/18 04:00 Corrected Calcium 9.3 mg/dL (8.5-10.1) 07/12/18 04:00 Magnesium 2.9 mg/dL (1.7-2.9) 07/12/18 04:00 Total Bilirubin 0.40 mg/dL (0.2-1.0) 07/12/18 04:00 AST 11 Units/L (15-37) L 07/12/18 04:00 ALT 12 Units/L (12-78) 07/12/18 04:00 Alkaline Phosphatase 105 Units/L (46-116) 07/12/18 04:00 Creatine Kinase 60 Units/L (26-192) 07/12/18 04:00 CK-MB (CK-2) < 1.0 ng/mL (0-4.0) 07/12/18 04:00 CK/CKMB % Calc 1.7 % (<4) 07/12/18 04:00 Troponin I < 0.02 ng/mL (0-1.5) 07/12/18 04:00 Total Protein 6.2 g/dL (6.4-8.2) L 07/12/18 04:00 Albumin 3.2 g/dL (3.4-5.0) L 07/12/18 04:00 Globulin 3.0 g/dL (2.5-4.5) 07/12/18 04:00 Albumin/Globulin Ratio 1.1 Ratio (1.1-2.1) 07/12/18 04:00 Triglycerides 183 mg/dL (0-150) H 07/12/18 04:00 Cholesterol 179 mg/dL (0-200) 07/12/18 04:00 LDL Cholesterol, Calc 90 mg/dL (0-100) 07/12/18 04:00 HDL Cholesterol 52 mg/dL (40-60) 07/12/18 04:00 Cholesterol/HDL Ratio 3.4 (0.0-5.0) 07/12/18 04:00 Specimen Type Clean catch urine 07/11/18 23:54 Urine Color Pale yellow (YELLOW) 07/11/18 23:54 Urine Appearance Clear (CLEAR) 07/11/18 23:54 Urine pH 8.0 (5.0 - 8.0) 07/11/18 23:54 Ur Specific [place] 1.010 (1.000-1.030) 07/11/18 23:54 Urine Protein Negative (NEGATIVE) 07/11/18 23:54 Urine Glucose (UA) Negative (NEGATIVE) 07/11/18 23:54 Urine Ketones Negative (NEGATIVE) 07/11/18 23:54 Urine Occult Blood 1+ (NEGATIVE) 07/11/18 23:54 Urine Nitrite Negative (NEGATIVE) 07/11/18 23:54 Urine Bilirubin Negative (NEGATIVE) 07/11/18 23:54 Urine Urobilinogen Normal (NORMAL) 07/11/18 23:54 Ur Leukocyte Esterase Negative (NEGATIVE) 07/11/18 23:54 Urine RBC 0-2 /HPF (NONE SEEN) 07/11/18 23:54 Urine WBC None seen /HPF (NONE SEEN) 07/11/18 23:54 Ur Squamous Epith Cells Moderate /HPF (NEGATIVE) 07/11/18 23:54 Urine Bacteria Trace /HPF (NEGATIVE) 07/11/18 23:54 Ur Culture Indicated? No/not indicated 07/11/18 23:54 Ethyl Alcohol mg/dL < 3 mg/dL (0-19.9) 07/11/18 19:17 XRAY XRAY Interpreted by: Radiologist XRAY Findings: REPORT DISCUSS WITH PATIENT. EKG Rhythm: NSR Block: LBBB ST: Nonsp Diagnosis Discharge Problem: Chest pain, Abdominal pain
[2018-07-11 19:25] LABS: BASOPHILS # (AUTO) 0.1 X10^3/uL (0.0-0.1); BASOPHILS % (AUTO) 1.1 % (0.2-1.0); EOSINOPHILS # (AUTO) 0.2 x10^3/uL (0.0-0.2); EOSINOPHILS % (AUTO) 2.1 % (0.9-2.9); HEMOGLOBIN 12.8 g/dL (12.0-16.0); LYMPHOCYTES # (AUTO) 2.9 X10^3/uL (1.3-2.9); LYMPHOCYTES % (AUTO) 33.2 % (21.0-51.0); MEAN CORPUSCULAR HEMOGLOBIN 28.9 pg (27.0-34.0); MEAN CORPUSCULAR HGB CONC 33.7 g/dL (33.0-35.0); MEAN CORPUSCULAR VOLUME 85.6 fL (80.0-100.0); MEAN PLATELET VOLUME 7.5 fL (7.4-11.0); MONOCYTES # (AUTO) 0.4 x10^3/uL (0.3-0.8); MONOCYTES % (AUTO) 4.9 % (0.0-13.0); NEUTROPHILS # (AUTO) 5.2 x10^3/uL (2.2-4.8); NEUTROPHILS % (AUTO) 58.7 % (42.0-75.0); PLATELET COUNT 252 X10^3/uL (150.0-450.0); RED BLOOD COUNT 4.44 X10^6/uL (3.5-5.4); RED CELL DISTRIBUTION WIDTH 15.7 % (11.6-16.5); WHITE BLOOD COUNT 8.8 X10^3/uL (3.6-10.0)
[2018-07-11] MEDS ORDERED: PEPCID 20 MG IV PREMIX* 20 MG/50 ML BAG IV ONE (19:46)
[2018-07-11 19:47] LABS: ALANINE AMINOTRANSFERASE 13 Units/L (12-78); ALBUMIN 3.5 g/dL (3.4-5.0); ALKALINE PHOSPHATASE 109 Units/L (46-116); ASPARTATE AMINO TRANSFERASE 11 Units/L (15-37); BLOOD UREA NITROGEN 7 mg/dL (7-18); CALCIUM 8.8 mg/dL (8.5-10.1); CARBON DIOXIDE 28.1 mmol/L (21-32); CHLORIDE 102 mmol/L (98-107); CKMB % 1.4 % (<4); CREATINE KINASE 71 Units/L (26-192); SODIUM 138 mmol/L (136-145); TOTAL PROTEIN 6.6 g/dL (6.4-8.2); TROPONIN I < 0.02 ng/mL (0-1.5); eGFR NON BLACK RACES > 60 (>60)
[2018-07-11] MEDS ORDERED: ASPIRIN 81 MG CHEWTAB ONE (19:48)
[2018-07-11] MEDS: ASPIRIN 81 MG CHEWTAB PO ONE (19:54)
[2018-07-11] MEDS ORDERED: NIFEDIPINE CAP 10 MG ONE (20:03)
[2018-07-11] MEDS ORDERED: NIFEDIPINE CAP 10 MG PO ONE (20:03)
[2018-07-11] MEDS ORDERED: K-LYTE EFFERVESCENT PO ONE (20:05)
[2018-07-11 20:25] LABS: BILIRUBIN,URINE NEGATIVE (NEGATIVE); BLOOD/HEMOGLOBIN,URINE 2+ (NEGATIVE); GLUCOSE, URINE NEGATIVE (NEGATIVE); KETONES,URINE NEGATIVE (NEGATIVE); LEUKOCYTE ESTERASE ,URINE 1+ (NEGATIVE); NITRITES,URINE NEGATIVE (NEGATIVE); PROTEIN,URINE NEGATIVE (NEGATIVE); UROBILINOGEN,URINE NORMAL (NORMAL)
[2018-07-11 20:27] LABS: APPEARANCE,URINE CLEAR (CLEAR); COLOR,URINE STRAW (YELLOW)
[2018-07-11 20:34] LABS: BACTERIA,URINE TRACE /HPF (NEGATIVE); SQUAMOUS EPITHELIAL CELL,UR RARE /HPF (NEGATIVE)
[2018-07-11] MEDS ORDERED: K-LYTE EFFERVESCENT ONE (20:34)
[2018-07-11] MEDS ORDERED: TORADOL 30 MG VIAL IVP ONE (22:27)
[2018-07-11] MEDS ORDERED: TORADOL 30 MG VIAL ONE (22:28)
[2018-07-11] MEDS: NS 1000 ML 1,000 ML IV SCH (22:54)
[2018-07-11 23:41] LABS: MAGNESIUM 1.8 mg/dL (1.7-2.9)
[2018-07-11 23:55] LABS: CKMB % 1.5 % (<4); CREATINE KINASE 66 Units/L (26-192); CREATINE KINASE MB < 1.0 ng/mL (0-4.0); TROPONIN I < 0.02 ng/mL (0-1.5)
[2018-07-12 00:10] LABS: BILIRUBIN,URINE NEGATIVE (NEGATIVE); BLOOD/HEMOGLOBIN,URINE 1+ (NEGATIVE); GLUCOSE, URINE NEGATIVE (NEGATIVE); KETONES,URINE NEGATIVE (NEGATIVE); LEUKOCYTE ESTERASE ,URINE NEGATIVE (NEGATIVE); NITRITES,URINE NEGATIVE (NEGATIVE); PROTEIN,URINE NEGATIVE (NEGATIVE); UROBILINOGEN,URINE NORMAL (NORMAL)
[2018-07-12] MEDS ORDERED: POTASSIUM CHL 40 MEQ/NS 0.45% 500 ML IV PRN (00:11)
[2018-07-12] MEDS ORDERED: K-RIDER 10 MEQ/NS 100 ML 10 MEQ/100 ML BAG IV PRN (00:11)
[2018-07-12] MEDS ORDERED: POTASSIUM CHL 60 MEQ/NS 0.45% 500 ML IV PRN (00:11)
[2018-07-12] MEDS ORDERED: K-LYTE EFFERVESCENT PO PRN (00:11)
[2018-07-12] MEDS ORDERED: POTASSIUM CHLORIDE LIQ 20 MEQ UDC PO PRN (00:11)
[2018-07-12 00:16] LABS: APPEARANCE,URINE CLEAR (CLEAR); BACTERIA,URINE TRACE /HPF (NEGATIVE); COLOR,URINE PALE YELLOW (YELLOW); RBC,URINE 0-2 /HPF (NONE SEEN); SQUAMOUS EPITHELIAL CELL,UR MODERATE /HPF (NEGATIVE)
[2018-07-12] MEDS ORDERED: K-DUR TAB 20 MEQ PO ONE ×2 (00:21→00:35)
[2018-07-12] MEDS: XANAX PO PRN ×2 (00:27→22:40)
[2018-07-12] MEDS: MAGNESIUM SULFATE 1 GRAM/100 mL PREMIX 1 GM/100 ML BAG IV PRN ×2 (00:29→01:35)
[2018-07-12] MEDS ORDERED: NORCO 5/325 MG TAB PO PRN (05:09)
[2018-07-12 05:11] LABS: BASOPHILS % (AUTO) 0.4 % (0.2-1.0); EOSINOPHILS # (AUTO) 0.2 x10^3/uL (0.0-0.2); HEMATOCRIT 37.1 % (36.0-47.0); HEMOGLOBIN 12.6 g/dL (12.0-16.0); LYMPHOCYTES # (AUTO) 2.9 X10^3/uL (1.3-2.9); MEAN CORPUSCULAR HEMOGLOBIN 29.4 pg (27.0-34.0); MEAN CORPUSCULAR HGB CONC 33.8 g/dL (33.0-35.0); MEAN CORPUSCULAR VOLUME 86.8 fL (80.0-100.0); MEAN PLATELET VOLUME 7.8 fL (7.4-11.0); MONOCYTES # (AUTO) 0.5 x10^3/uL (0.3-0.8); MONOCYTES % (AUTO) 6.6 % (0.0-13.0); NEUTROPHILS # (AUTO) 3.8 x10^3/uL (2.2-4.8); PLATELET COUNT 251 X10^3/uL (150.0-450.0); RED BLOOD COUNT 4.28 X10^6/uL (3.5-5.4); RED CELL DISTRIBUTION WIDTH 15.6 % (11.6-16.5); WHITE BLOOD COUNT 7.5 X10^3/uL (3.6-10.0)
[2018-07-12 05:36] LABS: ALANINE AMINOTRANSFERASE 12 Units/L (12-78); ALBUMIN 3.2 g/dL (3.4-5.0); ALKALINE PHOSPHATASE 105 Units/L (46-116); ASPARTATE AMINO TRANSFERASE 11 Units/L (15-37); BLOOD UREA NITROGEN 7 mg/dL (7-18); CALCIUM 8.7 mg/dL (8.5-10.1); CARBON DIOXIDE 31.9 mmol/L (21-32); CHLORIDE 107 mmol/L (98-107); CHOL/HDL RATIO 3.4 (0.0-5.0); CHOLESTEROL 179 mg/dL (0-200); CKMB % 1.7 % (<4); COR CA(FOR HYPOALB) 9.3 mg/dL (8.5-10.1); CREATINE KINASE 60 Units/L (26-192); CREATINE KINASE MB < 1.0 ng/mL (0-4.0); HDL CHOLESTEROL 52 mg/dL (40-60); MAGNESIUM 2.9 mg/dL (1.7-2.9); SODIUM 143 mmol/L (136-145); TOTAL PROTEIN 6.2 g/dL (6.4-8.2); TRIGLYCERIDES 183 mg/dL (0-150); TROPONIN I < 0.02 ng/mL (0-1.5); eGFR NON BLACK RACES > 60 (>60)
[2018-07-12] MEDS: NORCO 10/325 TAB PO PRN ×4 (07:41→21:32)
[2018-07-12] MEDS ORDERED: ZESTRIL TAB 20 MG ONE ×2 (09:39→21:02)
[2018-07-12] MEDS: PriLOSEC PO SCH (09:46)
[2018-07-12] MEDS: CATAPRES TAB 0.3 MG PO SCH ×2 (09:46→21:24)
[2018-07-12] MEDS: ZANTAC PO SCH (09:46)
[2018-07-12] MEDS: ZESTRIL TAB 20 MG PO SCH ×2 (09:46→21:24)
[2018-07-12 11:18] LABS: CKMB % 1.8 % (<4); CREATINE KINASE 56 Units/L (26-192); CREATINE KINASE MB < 1.0 ng/mL (0-4.0); TROPONIN I < 0.02 ng/mL (0-1.5)
[2018-07-12] MEDS: FIORICET TAB PO PRN ×2 (11:43→18:06)
[2018-07-12] MEDS: ASPIRIN 81 MG CHEWTAB PO ONE (18:06)
[2018-07-12] MEDS: NS 1000 ML 1,000 ML IV SCH (21:23)
[2018-07-13 04:14] VITALS: BMI 26.7
[2018-07-13 05:29] LABS: BASOPHILS % (AUTO) 0.7 % (0.2-1.0); EOSINOPHILS # (AUTO) 0.3 x10^3/uL (0.0-0.2); EOSINOPHILS % (AUTO) 4.4 % (0.9-2.9); HEMOGLOBIN 11.9 g/dL (12.0-16.0); LYMPHOCYTES # (AUTO) 2.8 X10^3/uL (1.3-2.9); LYMPHOCYTES % (AUTO) 42.1 % (21.0-51.0); MEAN CORPUSCULAR HEMOGLOBIN 29.1 pg (27.0-34.0); MEAN PLATELET VOLUME 8.1 fL (7.4-11.0); MONOCYTES # (AUTO) 0.4 x10^3/uL (0.3-0.8); MONOCYTES % (AUTO) 6.1 % (0.0-13.0); NEUTROPHILS # (AUTO) 3.1 x10^3/uL (2.2-4.8); NEUTROPHILS % (AUTO) 46.7 % (42.0-75.0); PLATELET COUNT 226 X10^3/uL (150.0-450.0); RED BLOOD COUNT 4.09 X10^6/uL (3.5-5.4); RED CELL DISTRIBUTION WIDTH 15.6 % (11.6-16.5); WHITE BLOOD COUNT 6.6 X10^3/uL (3.6-10.0)
[2018-07-13 05:41] LABS: ALANINE AMINOTRANSFERASE 13 Units/L (12-78); ALBUMIN 2.9 g/dL (3.4-5.0); ALKALINE PHOSPHATASE 96 Units/L (46-116); ASPARTATE AMINO TRANSFERASE 11 Units/L (15-37); BLOOD UREA NITROGEN 8 mg/dL (7-18); CALCIUM 8.2 mg/dL (8.5-10.1); CARBON DIOXIDE 28.7 mmol/L (21-32); CHLORIDE 108 mmol/L (98-107); COR CA(FOR HYPOALB) 9.1 mg/dL (8.5-10.1); SODIUM 142 mmol/L (136-145); TOTAL PROTEIN 5.8 g/dL (6.4-8.2); eGFR NON BLACK RACES > 60 (>60)
[2018-07-13] MEDS: XANAX PO PRN (07:40)
[2018-07-13] MEDS: FIORICET TAB PO PRN ×2 (07:40)
[2018-07-13] MEDS ORDERED: ZESTRIL TAB 20 MG ONE (08:38)
[2018-07-13] MEDS: ZANTAC PO SCH (08:41)
[2018-07-13] MEDS: CATAPRES TAB 0.3 MG PO SCH (08:42)
[2018-07-13] MEDS: NORCO 10/325 TAB PO PRN (08:42)
[2018-07-13] MEDS: PriLOSEC PO SCH (08:42)
[2018-07-13] MEDS: ZESTRIL TAB 20 MG PO SCH (08:42)
[2018-07-13] MEDS ORDERED: MILK OF MAGNESIA PO SCH (10:00)
[2018-07-13 12:31] VITALS: BP 180/97
[2018-07-13] MEDS ORDERED: COLACE CAP 100 MG PO SCH (21:00)
== END 2018-07-13 12:30 | disposition home or self-care (01) ==
LOC: MED/SURG 18:36 → ER 18:36 → MED/SURG 22:35
PROVIDERS: ADMIT Internal Medicine; ATTEND Internal Medicine
DX: Z79.899 Other long term (current) drug therapy; R06.02 Shortness of breath; R07.89 Other chest pain; Z66 Do not resuscitate; I10 Essential (primary) hypertension; R51 Headache; E87.6 Hypokalemia; R26.89 Other abnormalities of gait and mobility; J44.9 Chronic obstructive pulmonary disease, unspecified
CPT/HCPCS: 36415; 70450; 71010; 71045; 80053; 80061; 80320; 81001; 82550; 82553; 83735; 84132; 84484; 85025; 93005; 93010; 94760; 96365; 96374; 97162; 97167; 97530; 99284; A4222; S0028; G0378; G6040; J1885; J3475; J7030; J8499

== ENCOUNTER 2023-02-22 07:42 | Observation (INO) ==
--- NOTE | 2023-02-22 08:23 | DR.EXTPAIN ---
HPI Time seen Time Seen by Provider: 02/22/23 08:22 PCP Primary Care Physician: TRUDI Complaint/Symptoms Chief Complaint Doctor Comments: 72 y/o female presents with a wound on her right leg for the last 3 weeks. Pt scratched the area, started bleeding. Has not healed since. + having increasing redness of the area. Was treated past several days with amoxicillin. Having worsening redness, pain of the area. Pain is sharp, does not radiate. + worse with palpation, moving. Nothing makes it better. Has been oozing. Denies fever, has had some chills. Has a cough over past several days, non productive, improving. Has been nausea. No bowel or bladder issues. Chief Complaint:: PT STATES SHE WAS SCRATCHING AT LEG ABOUT 3 WEEKS AGO AND IT STARTED BLEEDING. SINCE THEN HASN'T HEALED. SITE HAS OPEN AREA IN CENTER THAT IS DRAINING SEROSANGUINEOUS FLUID; SKIN SURROUNDING SITE IS REDDENED AND PAINFUL TO TOUCH; PT STATES REDNESS HAS SPREAD OVER LAST 3 WEEKS Self Treatment fo Chief Complaint: BLOOD THINNERS D/T HEART ATTACK HAS TAKEN PRESCRIBED MEDS THIS MORNING PT HAD A PHONE CALL OV W/ DR. ROCK LAST WEEK AND HAS BEEN TREATED WITH AMOXICILLIN, WHICH SHE CONT TO TAKE COVID-19 Coronavirus risk:travel/contact w/high risk person: No Has patient experienced Coronavirus symptoms: No Nurses notes reviewed Nurses Notes Review: Yes Source History Provided: Patient Mode of arrival Mode of Arrival: Ambulatory Timing Onset of Chief Complaint: 02/01/23 PMH PMH Past Medical History: Yes Past Medical History: Anxiety, Arthritis, COPD, CVA, Depression, Dyslipidemia and Hypertension Past Surgical History: Yes Surgical History: Ortho Surgery Family History History of Family Medical Conditions: Yes Family Medical History: Cancer and Hypertension Social History Does patient currently use any type of tobacco product: Yes Have you used tobacco products in the last 12 months: Yes Type of Tobacco Use: Cigarettes Does any household member use tobacco: Yes Alcohol Use: Rarely Do you use any recreational Drugs:: No Lives With: Family Lives Where: Home Travel Risk Coronavirus risk:travel/contact w/high risk person: No Has patient experienced Coronavirus symptoms: No Infectious screening In the last 2 months have you had wt loss of >10#?: NO Have you had fever, night sweats or hemotysis?: No Have you traveled outside the country in the last 6 months?: No Isolation: Contact ROS Review of Systems Constitutional: Chills Eyes: No Symptoms Reported ENTM: No Symptoms Reported Respiratoy: Non-Productive Cough Cardiovascular: No Symptoms Reported Gastrointestinal/Abdominal: Nausea Genitourinary: No Symptoms Reported Neurological: No Symptoms Reported Musculoskeletal: No Symptoms Reported Integumentary: See HPI Psychiatric: No Symptoms Reported All Other Systems: Reviewed and Negative PE Vital Signs Vitals: Temperature 99.5 F Pulse Rate 68 Respiratory Rate 16 Blood Pressure [Right Calf] 181/79 Blood Pressure [Left Arm] 114/53 Blood Pressure [Right Arm] 241/103 Blood Pressure 135/64 O2 Sat by Pulse Oximetry 98 General General Appearance: Alert and In No Apparent Distress Eyes Eye exam: PERRL and EOMI ENT ENT Exam: Mucous Membranes Moist Neck Neck Exam: Normal Inspection Respiratory Respiratory Exam: Normal Lung Sounds Bilat and Other (+ episode of harsh, non productive coughing); negative Accessory Muscle Use or Respiratory Distress Abdominal Exam Abdominal Exam: Normal Bowel Sounds and Soft; negative Tenderness Extremities Extremities Exam: Full ROM; negative Edema Lower Extremities Lower Leg Exam: Tenderness (RLE, medial mid castillo, 1 cm wound, with surrounding erythema, tenderness. +distal NV intact. ) Neurological Neurological Exam: Alert, Oriented X3 and CN II-XII Intact; negative Motor Sensory Deficit Skin Skin Exam: Warm and Dry COURSE Treatment Treatment: 72 y/o with worsening wound of RLE, appears to be developing cellulitis. W/u initiated. 0950 - CXR with COPD changes, no acute abnolrmalities. Labs overall acceptable. Pt with worsening infection, failed outpatient antibiotic. Recommend admission for further treatment. Discussed with her attending, Dr Rock, will admit. Given IV zosyn, Vancomycin to start. ROR Labs Reviewed Result Diagrams: 02/22/23 08:45 02/22/23 08:45 Laboratory: WBC 7.4 X10^3/uL (3.6-10.0) 02/22/23 08:45 RBC 4.43 X10^6/uL (3.5-5.4) 02/22/23 08:45 Hgb 14.0 g/dL (12.0-16.0) 02/22/23 08:45 Hct 41.2 % (36.0-47.0) 02/22/23 08:45 MCV 93.0 fL (80.0-100.0) 02/22/23 08:45 MCH 31.7 pg (27.0-34.0) 02/22/23 08:45 MCHC 34.1 g/dL (33.0-35.0) 02/22/23 08:45 RDW 13.9 % (11.6-16.5) 02/22/23 08:45 Plt Count 310 X10^3/uL (150.0-450.0) 02/22/23 08:45 MPV 6.3 fL (7.4-11.0) L 02/22/23 08:45 Neut % (Auto) 78.0 % (42.0-75.0) H 02/22/23 08:45 Lymph % (Auto) 15.3 % (21.0-51.0) L 02/22/23 08:45 [place] % (Auto) 5.5 % (0.0-13.0) 02/22/23 08:45 Eos % (Auto) 0.8 % (0.9-2.9) L 02/22/23 08:45 Baso % (Auto) 0.4 % (0.2-1.0) 02/22/23 08:45 Neut # (Auto) 5.8 x10^3/uL (2.2-4.8) H 02/22/23 08:45 Lymph # (Auto) 1.1 X10^3/uL (1.3-2.9) L 02/22/23 08:45 [place] # (Auto) 0.4 x10^3/uL (0.3-0.8) 02/22/23 08:45 Eos # (Auto) 0.1 x10^3/uL (0.0-0.2) 02/22/23 08:45 Baso # (Auto) 0.0 X10^3/uL (0.0-0.1) 02/22/23 08:45 Absolute Nucleated RBC 0.0 /100WBC 02/22/23 08:45 Sodium 137 mmol/L (136-145) 02/22/23 08:45 Corrected Sodium 137 mmol/L (136-145) 02/22/23 08:45 Potassium 3.2 mmol/L (3.5-5.1) L 02/22/23 08:45 Chloride 95 mmol/L (98-107) L 02/22/23 08:45 Carbon Dioxide 35.6 mmol/L (21-32) H 02/22/23 08:45 BUN 9 mg/dL (7-18) 02/22/23 08:45 Creatinine 0.68 mg/dL (0.55-1.02) 02/22/23 08:45 Est GFR (MDRD) Af Amer > 60 (>60) 02/22/23 08:45 Est GFR (MDRD) Non-Af > 60 (>60) 02/22/23 08:45 Glucose 113 mg/dL (65-99) H 02/22/23 08:45 Lactic Acid 1.0 mmol/L (0.4-2.0) 02/22/23 08:45 Calcium 9.3 mg/dL (8.5-10.1) 02/22/23 08:45 Corrected Calcium TNP 02/22/23 08:45 Total Bilirubin 0.60 mg/dL (0.2-1.0) 02/22/23 08:45 AST 26 Units/L (15-37) 02/22/23 08:45 ALT 25 Units/L (12-78) 02/22/23 08:45 Alkaline Phosphatase 126 Units/L (46-116) H 02/22/23 08:45 Total Protein 7.2 g/dL (6.4-8.2) 02/22/23 08:45 Albumin 3.9 g/dL (3.4-5.0) 02/22/23 08:45 Globulin 3.3 g/dL (2.5-4.5) 02/22/23 08:45 Albumin/Globulin Ratio 1.2 Ratio (1.1-2.1) 02/22/23 08:45 Specimen Type Clean catch urine 02/22/23 09:21 Urine Color Pale yellow (YELLOW) 02/22/23 09:21 Urine Appearance Slightly hazy (CLEAR) 02/22/23 09:21 Urine pH 7.0 (5.0 - 8.0) 02/22/23 09:21 Ur Specific [place] 1.010 (1.000-1.030) 02/22/23 09:21 Urine Protein Negative (NEGATIVE) 02/22/23 09:21 Urine Glucose (UA) Negative (NEGATIVE) 02/22/23 09:21 Urine Ketones Negative (NEGATIVE) 02/22/23 09:21 Urine Blood 3+ (NEGATIVE) 02/22/23 09:21 Urine Nitrite Negative (NEGATIVE) 02/22/23 09:21 Urine Bilirubin Negative (NEGATIVE) 02/22/23 09:21 Urine Urobilinogen Normal (NORMAL) 02/22/23 09:21 Ur Leukocyte Esterase 2+ (NEGATIVE) 02/22/23 09:21 Urine RBC 3-5 /HPF (0-3) A 02/22/23 09:21 Urine WBC 0-2 /HPF (0-5) 02/22/23 09:21 Ur Squamous Epith Cells Rare /HPF (NEGATIVE) 02/22/23 09:21 Urine Bacteria Negative /HPF (NEGATIVE) 02/22/23 09:21 Ur Culture Indicated? No/not indicated 02/22/23 09:21 Opioid Opioid Risk Tool Age (Claudio box if 16-45): No History of Preadolescent Sexual Abuse: No Total: 0 Total Score Risk Category: Low Risk Copyright: Fady MOREIRA predicting aberrant behaviors Discharge Plan Diagnosis Discharge Problem: Cellulitis of leg, right Discharge Plan Patient Disposition: ADMITTED INPATIENT Condition: Stable Orders to Discharge Patient Discharge Orders: Transfer (Routine); Ordered 02/22/23 Ordered By: Johann Daley
[2023-02-22] MEDS ORDERED: NS 500 ML IV 500 ML IV ONE ×3 (08:36→20:28)
[2023-02-22 09:28] LABS: BASOPHILS % (AUTO) 0.4 % (0.2-1.0); EOSINOPHILS # (AUTO) 0.1 x10^3/uL (0.0-0.2); EOSINOPHILS % (AUTO) 0.8 % (0.9-2.9); HEMATOCRIT 41.2 % (36.0-47.0); LYMPHOCYTES # (AUTO) 1.1 X10^3/uL (1.3-2.9); LYMPHOCYTES % (AUTO) 15.3 % (21.0-51.0); MEAN CORPUSCULAR HEMOGLOBIN 31.7 pg (27.0-34.0); MEAN CORPUSCULAR HGB CONC 34.1 g/dL (33.0-35.0); MEAN PLATELET VOLUME 6.3 fL (7.4-11.0); MONOCYTES # (AUTO) 0.4 x10^3/uL (0.3-0.8); MONOCYTES % (AUTO) 5.5 % (0.0-13.0); NEUTROPHILS # (AUTO) 5.8 x10^3/uL (2.2-4.8); PLATELET COUNT 310 X10^3/uL (150.0-450.0); RED BLOOD COUNT 4.43 X10^6/uL (3.5-5.4); RED CELL DISTRIBUTION WIDTH 13.9 % (11.6-16.5); WHITE BLOOD COUNT 7.4 X10^3/uL (3.6-10.0)
[2023-02-22 09:36] LABS: BILIRUBIN,URINE NEGATIVE (NEGATIVE); BLOOD/HEMOGLOBIN,URINE 3+ (NEGATIVE); GLUCOSE, URINE NEGATIVE (NEGATIVE); KETONES,URINE NEGATIVE (NEGATIVE); LEUKOCYTE ESTERASE ,URINE 2+ (NEGATIVE); NITRITES,URINE NEGATIVE (NEGATIVE); PROTEIN,URINE NEGATIVE (NEGATIVE); UROBILINOGEN,URINE NORMAL (NORMAL)
[2023-02-22 09:39] LABS: APPEARANCE,URINE SLIGHTLY HAZY (CLEAR); COLOR,URINE PALE YELLOW (YELLOW)
[2023-02-22 09:42] LABS: ALANINE AMINOTRANSFERASE 25 Units/L (12-78); ALBUMIN 3.9 g/dL (3.4-5.0); ALKALINE PHOSPHATASE 126 Units/L (46-116); ASPARTATE AMINO TRANSFERASE 26 Units/L (15-37); BLOOD UREA NITROGEN 9 mg/dL (7-18); CALCIUM 9.3 mg/dL (8.5-10.1); CARBON DIOXIDE 35.6 mmol/L (21-32); CHLORIDE 95 mmol/L (98-107); COR NA(FOR HYPERGLY) 137 mmol/L (136-145); CREATININE 0.68 mg/dL (0.55-1.02); GLUCOSE 113 mg/dL (65-99); POTASSIUM 3.2 mmol/L (3.5-5.1); SODIUM 137 mmol/L (136-145); TOTAL PROTEIN 7.2 g/dL (6.4-8.2); eGFR NON BLACK RACES > 60 (>60)
[2023-02-22 09:43] LABS: BACTERIA,URINE NEGATIVE /HPF (NEGATIVE); SQUAMOUS EPITHELIAL CELL,UR RARE /HPF (NEGATIVE)
[2023-02-22] MEDS ORDERED: ZOSYN VIAL 3.375 GRAMS 3.375 G in NS 100 ML IV 100 ML IV ONE (10:16)
[2023-02-22] MEDS ORDERED: VANCOMYCIN IV *PREMIX 1 G/200 ML BAG 1 G/200 ML PIGGYBACK IV ONE (10:17)
[2023-02-22] MEDS ORDERED: ZOSYN VIAL 3.375 GRAMS IV ONE (10:20)
[2023-02-22] MEDS ORDERED: NS 100 ML IV 100 ML ONE (10:20)
[2023-02-22] MEDS ORDERED: PHARMACY CONSULT - VANCOMYCIN XX SCH (11:00)
--- NOTE | 2023-02-22 12:20 | RAD ---
HISTORY: [Cough]. Dyspnea.EXAM: Single portable view of the chest.Comparison: [None].Findings: The trachea is midline. The cardiac silhouette is unremarkable. The lungs are well inflated with increased perihilar interstitial opacities and associated bronchial cuffing; findings which can be seen with mild viral bronchitis of the tracheobronchial tree versus small airways disease. Please correlate. [However, there is no lobar pneumonia or pulmonary mass]. The lungs are otherwise clear without focal infiltrate or pleural effusion. The bony thorax is unremarkable.IMPRESSION: No lobar infiltrates or effusions seen.Radiographic findings of small airways disease, as above.Electronically signed by: ROOSEVELT RYDER III (Feb 22, 2023 12:18:29)
[2023-02-22] MEDS ORDERED: DUONEB 0.5 MG/3 MG (3 mL) NEB ONE (12:49)
[2023-02-22 13:01] VITALS: BMI 10.4
[2023-02-22] MEDS: DUONEB 0.5 MG/3 MG (3 mL) NEB SCH ×2 (13:04→20:21)
[2023-02-22] MEDS ORDERED: ZOFRAN TAB 4 MG PO PRN (16:58)
[2023-02-22] MEDS: PERCOCET TAB 5/325 MG PO PRN (18:11)
[2023-02-22] MEDS ORDERED: POTASSIUM CHLORIDE LIQ 20 MEQ UDC PO PRN (18:53)
[2023-02-22] MEDS ORDERED: MICRO K EXTEN CAP 10 MEQ PO PRN (18:53)
[2023-02-22] MEDS ORDERED: POTASSIUM CHL 60 MEQ/NS 0.45% 500 ML IV PRN (18:53)
[2023-02-22] MEDS ORDERED: KLOR-CON PO PRN (18:53)
[2023-02-22] MEDS ORDERED: POTASSIUM CHL 40 MEQ/NS 0.45% 500 ML IV PRN (18:53)
[2023-02-22] MEDS ORDERED: K-RIDER 10 MEQ/NS 100 ML 10 MEQ/100 ML BAG IV PRN (18:53)
[2023-02-22] MEDS: NORVASC TAB 5 MG PO SCH (20:16)
[2023-02-22] MEDS: BRILINTA PO SCH (20:17)
[2023-02-22] MEDS: LIPITOR TAB 40 MG PO SCH (20:17)
[2023-02-22] MEDS: XANAX PO PRN (20:17)
[2023-02-22] MEDS: LOPRESSOR TAB 25 MG PO SCH (20:17)
[2023-02-22] MEDS: K-DUR TAB 20 MEQ PO PRN (20:17)
[2023-02-22] MEDS: NICOTINE PATCH TD SCH (20:18)
[2023-02-22] MEDS: PULMICORT NEB TX 0.5 MG NEB SCH (20:21)
[2023-02-22] MEDS: VANCOMYCIN IV *PREMIX 1 G/200 ML BAG 1 G/200 ML PIGGYBACK IV SCH (20:26)
[2023-02-22] MEDS ORDERED: VANCOMYCIN IV *PREMIX 1 G/200 ML BAG 1 G/200 ML PIGGYBACK IV SCH (21:00)
[2023-02-23] MEDS: PERCOCET TAB 5/325 MG PO PRN ×3 (03:09→19:21)
[2023-02-23 05:06] LABS: BASOPHILS % (AUTO) 0.3 % (0.2-1.0); EOSINOPHILS # (AUTO) 0.1 x10^3/uL (0.0-0.2); EOSINOPHILS % (AUTO) 1.4 % (0.9-2.9); HEMATOCRIT 33.7 % (36.0-47.0); LYMPHOCYTES # (AUTO) 1.5 X10^3/uL (1.3-2.9); LYMPHOCYTES % (AUTO) 23.4 % (21.0-51.0); MEAN CORPUSCULAR HEMOGLOBIN 32.3 pg (27.0-34.0); MEAN CORPUSCULAR HGB CONC 34.5 g/dL (33.0-35.0); MEAN CORPUSCULAR VOLUME 93.6 fL (80.0-100.0); MEAN PLATELET VOLUME 6.5 fL (7.4-11.0); MONOCYTES # (AUTO) 0.5 x10^3/uL (0.3-0.8); MONOCYTES % (AUTO) 7.6 % (0.0-13.0); NEUTROPHILS # (AUTO) 4.4 x10^3/uL (2.2-4.8); NEUTROPHILS % (AUTO) 67.3 % (42.0-75.0); PLATELET COUNT 242 X10^3/uL (150.0-450.0); RED BLOOD COUNT 3.61 X10^6/uL (3.5-5.4); RED CELL DISTRIBUTION WIDTH 14.1 % (11.6-16.5); WHITE BLOOD COUNT 6.5 X10^3/uL (3.6-10.0)
[2023-02-23 05:11] LABS: HEMOGLOBIN 11.6 g/dL (12.0-16.0)
[2023-02-23 05:13] LABS: ALANINE AMINOTRANSFERASE 18 Units/L (12-78); ALKALINE PHOSPHATASE 88 Units/L (46-116); ASPARTATE AMINO TRANSFERASE 18 Units/L (15-37); BLOOD UREA NITROGEN 6 mg/dL (7-18); CALCIUM 8.1 mg/dL (8.5-10.1); CARBON DIOXIDE 31.2 mmol/L (21-32); CHLORIDE 104 mmol/L (98-107); COR CA(FOR HYPOALB) 8.9 mg/dL (8.5-10.1); COR NA(FOR HYPERGLY) 140 mmol/L (136-145); GLUCOSE 111 mg/dL (65-99); SODIUM 140 mmol/L (136-145); TOTAL PROTEIN 5.6 g/dL (6.4-8.2); eGFR NON BLACK RACES > 60 (>60)
[2023-02-23 05:15] LABS: POTASSIUM 2.9 mmol/L (3.5-5.1)
[2023-02-23] MEDS: DUONEB 0.5 MG/3 MG (3 mL) NEB SCH ×3 (06:00→20:10)
[2023-02-23] MEDS: MAGNESIUM SULFATE 1 GRAM/100 mL PREMIX 1 G/100 ML BAG IV PRN ×2 (06:01→08:10)
[2023-02-23] MEDS: VANCOMYCIN IV *PREMIX 1 G/200 ML BAG 1 G/200 ML PIGGYBACK IV SCH ×2 (08:10→21:41)
[2023-02-23] MEDS: PriLOSEC PO SCH (08:12)
[2023-02-23] MEDS: NICOTINE PATCH TD SCH (08:12)
[2023-02-23] MEDS: BRILINTA PO SCH ×2 (08:12→20:54)
[2023-02-23] MEDS: HYDROCHLOROTHIAZIDE 12.5 MG CAP PO SCH (08:13)
[2023-02-23] MEDS: CELEXA PO SCH (08:13)
[2023-02-23] MEDS: LOPRESSOR TAB 25 MG PO SCH ×2 (08:13→20:54)
[2023-02-23] MEDS: XANAX PO PRN ×2 (08:14→20:54)
[2023-02-23] MEDS: PULMICORT NEB TX 0.5 MG NEB SCH ×2 (08:46→20:10)
--- NOTE | 2023-02-23 09:04 | DR.H&P ---
H&P History & Physical for Day of: H&P Date: 02/22/23 Chief Complaint Chief Complaint: Right leg wound and redness Allergies Allergies Allergy/AdvReac Type Severity Reaction Status Date / Time No Known Drug Allergies Allergy Verified 01/14/20 15:56 History of Present Illness History of Present Illness: Pt is a 72 year old female presenting with worsening wound and redness on right lower leg for the past 3 weeks. She reports for the past week area of redness on skin started spreading after she had been scratching and "picking" at wound. Labs/imaging: Wbc 7.4, Hgb 14, Plt 310, Na 137, K 3.2, Creatinine 0.68, Glucose 113, UA negative, CXR no acute findings, Wound/Blood culture pending. Pt was admitted for cellulitis. Started on IV antibiotics: Vancomycin. Hypokalemia on labs, replete per protocol. Will restart home medications. Continue to closely monitor and follow up labs. Past Medical History Past Medical History: Anxiety, Arthritis, COPD, CVA, Depression, Dyslipidemia and Hypertension Past Surgical History Surgical History: Ortho Surgery Family History Family Medical History: Cancer Social History Does patient currently use any type of tobacco product: Yes Have you used tobacco products in the last 12 months: Yes Type of Tobacco Use: Cigarettes How many years tobacco product used: 45 Does any household member use tobacco: Yes Alcohol Use: Rarely Medications Home Medications: No Known Drug Allergies Allergy (Verified 01/14/20 15:56) CONTINUE taking the following medications amoxicillin 500 mg capsule 500 mg PO DAILY 02/22/23 [History] metoprolol tartrate 25 mg tablet 12.5 mg PO BID 02/22/23 [History] ondansetron HCl 4 mg tablet 4 mg PO Q6HR 02/22/23 [History] ticagrelor 90 mg tablet (Brilinta) 90 mg PO BID 02/22/23 [History] Labs Result Diagrams: 02/23/23 04:38 02/23/23 04:38 Labs: Laboratory WBC 6.5 X10^3/uL (3.6-10.0) 02/23/23 04:38 RBC 3.61 X10^6/uL (3.5-5.4) 02/23/23 04:38 Hgb 11.6 g/dL (12.0-16.0) L D 02/23/23 04:38 Hct 33.7 % (36.0-47.0) L 02/23/23 04:38 MCV 93.6 fL (80.0-100.0) 02/23/23 04:38 MCH 32.3 pg (27.0-34.0) 02/23/23 04:38 MCHC 34.5 g/dL (33.0-35.0) 02/23/23 04:38 RDW 14.1 % (11.6-16.5) 02/23/23 04:38 Plt Count 242 X10^3/uL (150.0-450.0) 02/23/23 04:38 MPV 6.5 fL (7.4-11.0) L 02/23/23 04:38 Neut % (Auto) 67.3 % (42.0-75.0) 02/23/23 04:38 Lymph % (Auto) 23.4 % (21.0-51.0) 02/23/23 04:38 [place] % (Auto) 7.6 % (0.0-13.0) 02/23/23 04:38 Eos % (Auto) 1.4 % (0.9-2.9) 02/23/23 04:38 Baso % (Auto) 0.3 % (0.2-1.0) 02/23/23 04:38 Neut # (Auto) 4.4 x10^3/uL (2.2-4.8) 02/23/23 04:38 Lymph # (Auto) 1.5 X10^3/uL (1.3-2.9) 02/23/23 04:38 [place] # (Auto) 0.5 x10^3/uL (0.3-0.8) 02/23/23 04:38 Eos # (Auto) 0.1 x10^3/uL (0.0-0.2) 02/23/23 04:38 Baso # (Auto) 0.0 X10^3/uL (0.0-0.1) 02/23/23 04:38 Absolute Nucleated RBC 0.0 /100WBC 02/23/23 04:38 Sodium 140 mmol/L (136-145) 02/23/23 04:38 Corrected Sodium 140 mmol/L (136-145) 02/23/23 04:38 Potassium 2.9 mmol/L (3.5-5.1) L* 02/23/23 04:38 Chloride 104 mmol/L (98-107) 02/23/23 04:38 Carbon Dioxide 31.2 mmol/L (21-32) 02/23/23 04:38 BUN 6 mg/dL (7-18) L 02/23/23 04:38 Creatinine 0.60 mg/dL (0.55-1.02) 02/23/23 04:38 Est GFR (MDRD) Af Amer > 60 (>60) 02/23/23 04:38 Est GFR (MDRD) Non-Af > 60 (>60) 02/23/23 04:38 Glucose 111 mg/dL (65-99) H 02/23/23 04:38 Lactic Acid 1.0 mmol/L (0.4-2.0) 02/22/23 08:45 Calcium 8.1 mg/dL (8.5-10.1) L 02/23/23 04:38 Corrected Calcium 8.9 mg/dL (8.5-10.1) 02/23/23 04:38 Magnesium 1.8 mg/dL (2.0-2.9) L 02/23/23 04:38 Total Bilirubin 0.40 mg/dL (0.2-1.0) 02/23/23 04:38 AST 18 Units/L (15-37) 02/23/23 04:38 ALT 18 Units/L (12-78) 02/23/23 04:38 Alkaline Phosphatase 88 Units/L (46-116) 02/23/23 04:38 Total Protein 5.6 g/dL (6.4-8.2) L 02/23/23 04:38 Albumin 3.0 g/dL (3.4-5.0) L 02/23/23 04:38 Globulin 2.6 g/dL (2.5-4.5) 02/23/23 04:38 Albumin/Globulin Ratio 1.2 Ratio (1.1-2.1) 02/23/23 04:38 Specimen Type Clean catch urine 02/22/23 09:21 Urine Color Pale yellow (YELLOW) 02/22/23 09:21 Urine Appearance Slightly hazy (CLEAR) 02/22/23 09:21 Urine pH 7.0 (5.0 - 8.0) 02/22/23 09:21 Ur Specific [place] 1.010 (1.000-1.030) 02/22/23 09:21 Urine Protein Negative (NEGATIVE) 02/22/23 09:21 Urine Glucose (UA) Negative (NEGATIVE) 02/22/23 09:21 Urine Ketones Negative (NEGATIVE) 02/22/23 09:21 Urine Blood 3+ (NEGATIVE) 02/22/23 09:21 Urine Nitrite Negative (NEGATIVE) 02/22/23 09:21 Urine Bilirubin Negative (NEGATIVE) 02/22/23 09:21 Urine Urobilinogen Normal (NORMAL) 02/22/23 09:21 Ur Leukocyte Esterase 2+ (NEGATIVE) 02/22/23 09:21 Urine RBC 3-5 /HPF (0-3) A 02/22/23 09:21 Urine WBC 0-2 /HPF (0-5) 02/22/23 09:21 Ur Squamous Epith Cells Rare /HPF (NEGATIVE) 02/22/23 09:21 Urine Bacteria Negative /HPF (NEGATIVE) 02/22/23 09:21 Ur Culture Indicated? No/not indicated 02/22/23 09:21 Review of Systems Constitutional: No Symptoms Reported Eyes: No Symptoms Reported ENT: No Symptoms Reported Respiratory: No Symptoms Reported Cardiovascular: No Symptoms Reported Gastrointestinal: No Symptoms Reported Genitourinary: No Symptoms Reported Musculoskeletal: No Symptoms Reported Skin: Rash and Wound (right lower leg) Neurological: No Symptoms Reported Physical Exam Vital Signs: Temperature 97.6 F Pulse Rate [Left] 70 Pulse Rate 71 Respiratory Rate 20 Blood Pressure [Right Calf] 181/79 Blood Pressure [Left Arm] 134/55 Blood Pressure [Right Arm] 241/103 Blood Pressure 135/64 O2 Sat by Pulse Oximetry 97 Oriented: Normal Eyes: Normal Ear: Normal Nose: Normal Throat: Normal Respiratory: Clear Throughout Cardiovascular: Normal : Normal Auscultation: Bowel Sounds: Normal Palpation: Normal Tenderness: Normal Skin: Wound and Other (circular area of erythema right lower extremity) Musculoskeletal: Normal Psychiatric: Normal Mood Description: Calm and Appropriate Affect: Normal Speech Pattern: Clear and Appropriate Assessment/Plan (1) Cellulitis of leg, right: Narrative Support Text: IV antibiotics Wound/Blood cultures pending Status: Acute (2) Hypokalemia: Status: Acute (3) Hypertension: Status: Chronic (4) Generalized anxiety disorder: Status: None (5) CAD (coronary artery disease): Status: Acute (6) Primary osteoarthritis of lumbar spine: Status: None Review H&P Reviewed: Yes Patient was examined?: Yes
--- NOTE | 2023-02-23 09:08 | PCM.PROG ---
Progress Note Progress Note for Day of Date of Exam: 02/23/23 Subjective Subjective: Pt is a 72 year old female admitted for cellulitis and hypokalemia. This morning she is resting in bed comfortably. No acute events overnight. Labs/imaging: Wbc 7.5, Hgb 11.6, Plt 242, Na 140, K 2.9, Creatinine 0.60, Glucose 111, Wound/Blood culture pending. Cellulitis appears to be improving as area of erythema has decreased a little from marker line. Will continue on IV antibiotics: Vancomycin. Hypokalemia on labs, replete per protocol. Home medications have been resumed. Continue to closely monitor and follow up labs. Past Medical Family Social History Allergies: Allergies No Known Drug Allergies Allergy (Verified 01/14/20 15:56) Review of Systems ROS: No change since H&P Vital Signs and I&O's Vital Signs: Temperature 97.6 F Pulse Rate [Left] 70 Pulse Rate 71 Respiratory Rate 20 Blood Pressure [Right Calf] 181/79 Blood Pressure [Left Arm] 134/55 Blood Pressure [Right Arm] 241/103 Blood Pressure 135/64 O2 Sat by Pulse Oximetry 97 Intake and Output: Intake & Output 02/20/23 02/21/23 02/22/23 02/23/23 23:59 23:59 23:59 23:59 Intake Total 1325 / 1325 340 / 340 Balance 1325 / 1325 340 / 340 Physical Exam Oriented: Normal Eyes: Normal Ear: Normal Nose: Normal Throat: Normal Respiratory: Normal Cardiovascular: Normal : Normal Auscultation: Bowel Sounds: Normal Tenderness: Normal Skin: Wound and Other (circular area of erythema right lower extremity) Musculoskeletal: Normal Psychiatric: Normal Mood Description: Calm and Appropriate Affect: Normal Speech Pattern: Clear and Appropriate Laboratory and Diagnostics Result Diagrams: 02/23/23 04:38 02/23/23 04:38 Labs: Laboratory WBC 6.5 X10^3/uL (3.6-10.0) 02/23/23 04:38 RBC 3.61 X10^6/uL (3.5-5.4) 02/23/23 04:38 Hgb 11.6 g/dL (12.0-16.0) L D 02/23/23 04:38 Hct 33.7 % (36.0-47.0) L 02/23/23 04:38 MCV 93.6 fL (80.0-100.0) 02/23/23 04:38 MCH 32.3 pg (27.0-34.0) 02/23/23 04:38 MCHC 34.5 g/dL (33.0-35.0) 02/23/23 04:38 RDW 14.1 % (11.6-16.5) 02/23/23 04:38 Plt Count 242 X10^3/uL (150.0-450.0) 02/23/23 04:38 MPV 6.5 fL (7.4-11.0) L 02/23/23 04:38 Neut % (Auto) 67.3 % (42.0-75.0) 02/23/23 04:38 Lymph % (Auto) 23.4 % (21.0-51.0) 02/23/23 04:38 [place] % (Auto) 7.6 % (0.0-13.0) 02/23/23 04:38 Eos % (Auto) 1.4 % (0.9-2.9) 02/23/23 04:38 Baso % (Auto) 0.3 % (0.2-1.0) 02/23/23 04:38 Neut # (Auto) 4.4 x10^3/uL (2.2-4.8) 02/23/23 04:38 Lymph # (Auto) 1.5 X10^3/uL (1.3-2.9) 02/23/23 04:38 [place] # (Auto) 0.5 x10^3/uL (0.3-0.8) 02/23/23 04:38 Eos # (Auto) 0.1 x10^3/uL (0.0-0.2) 02/23/23 04:38 Baso # (Auto) 0.0 X10^3/uL (0.0-0.1) 02/23/23 04:38 Absolute Nucleated RBC 0.0 /100WBC 02/23/23 04:38 Sodium 140 mmol/L (136-145) 02/23/23 04:38 Corrected Sodium 140 mmol/L (136-145) 02/23/23 04:38 Potassium 2.9 mmol/L (3.5-5.1) L* 02/23/23 04:38 Chloride 104 mmol/L (98-107) 02/23/23 04:38 Carbon Dioxide 31.2 mmol/L (21-32) 02/23/23 04:38 BUN 6 mg/dL (7-18) L 02/23/23 04:38 Creatinine 0.60 mg/dL (0.55-1.02) 02/23/23 04:38 Est GFR (MDRD) Af Amer > 60 (>60) 02/23/23 04:38 Est GFR (MDRD) Non-Af > 60 (>60) 02/23/23 04:38 Glucose 111 mg/dL (65-99) H 02/23/23 04:38 Lactic Acid 1.0 mmol/L (0.4-2.0) 02/22/23 08:45 Calcium 8.1 mg/dL (8.5-10.1) L 02/23/23 04:38 Corrected Calcium 8.9 mg/dL (8.5-10.1) 02/23/23 04:38 Magnesium 1.8 mg/dL (2.0-2.9) L 02/23/23 04:38 Total Bilirubin 0.40 mg/dL (0.2-1.0) 02/23/23 04:38 AST 18 Units/L (15-37) 02/23/23 04:38 ALT 18 Units/L (12-78) 02/23/23 04:38 Alkaline Phosphatase 88 Units/L (46-116) 02/23/23 04:38 Total Protein 5.6 g/dL (6.4-8.2) L 02/23/23 04:38 Albumin 3.0 g/dL (3.4-5.0) L 02/23/23 04:38 Globulin 2.6 g/dL (2.5-4.5) 02/23/23 04:38 Albumin/Globulin Ratio 1.2 Ratio (1.1-2.1) 02/23/23 04:38 Specimen Type Clean catch urine 02/22/23 09:21 Urine Color Pale yellow (YELLOW) 02/22/23 09:21 Urine Appearance Slightly hazy (CLEAR) 02/22/23 09:21 Urine pH 7.0 (5.0 - 8.0) 02/22/23 09:21 Ur Specific [place] 1.010 (1.000-1.030) 02/22/23 09:21 Urine Protein Negative (NEGATIVE) 02/22/23 09:21 Urine Glucose (UA) Negative (NEGATIVE) 02/22/23 09:21 Urine Ketones Negative (NEGATIVE) 02/22/23 09:21 Urine Blood 3+ (NEGATIVE) 02/22/23 09:21 Urine Nitrite Negative (NEGATIVE) 02/22/23 09:21 Urine Bilirubin Negative (NEGATIVE) 02/22/23 09:21 Urine Urobilinogen Normal (NORMAL) 02/22/23 09:21 Ur Leukocyte Esterase 2+ (NEGATIVE) 02/22/23 09:21 Urine RBC 3-5 /HPF (0-3) A 02/22/23 09:21 Urine WBC 0-2 /HPF (0-5) 02/22/23 09:21 Ur Squamous Epith Cells Rare /HPF (NEGATIVE) 02/22/23 09:21 Urine Bacteria Negative /HPF (NEGATIVE) 02/22/23 09:21 Ur Culture Indicated? No/not indicated 02/22/23 09:21 Plan (1) Cellulitis of leg, right: Status: Acute Plan: IV antibiotics Wound/blood culture pending (2) Hypokalemia: Status: Acute Plan: Replete per protocol (3) Hypertension: Status: Chronic (4) Generalized anxiety disorder: Status: Chronic (5) CAD (coronary artery disease): Status: Chronic (6) Primary osteoarthritis of lumbar spine: Status: Chronic
[2023-02-23] MEDS: LOVENOX INJ 40 MG SYR SC SCH (10:07)
[2023-02-23] MEDS: K-DUR TAB 20 MEQ PO PRN (10:08)
[2023-02-23] MEDS ORDERED: PHARMACY COMMENT IV ONE ×2 (20:30)
[2023-02-23] MEDS: LIPITOR TAB 40 MG PO SCH (20:55)
[2023-02-23] MEDS: NORVASC TAB 5 MG PO SCH (20:55)
[2023-02-23 21:08] LABS: CREATININE 0.8 mg/dL (0.55-1.02); VANCOMYCIN,TROUGH 14.8 ug/mL (15-20)
[2023-02-24] MEDS: PERCOCET TAB 5/325 MG PO PRN ×3 (02:54→16:26)
[2023-02-24 06:10] LABS: BASOPHILS % (AUTO) 0.7 % (0.2-1.0); EOSINOPHILS # (AUTO) 0.1 x10^3/uL (0.0-0.2); EOSINOPHILS % (AUTO) 2.4 % (0.9-2.9); HEMATOCRIT 33.2 % (36.0-47.0); HEMOGLOBIN 11.4 g/dL (12.0-16.0); LYMPHOCYTES # (AUTO) 1.6 X10^3/uL (1.3-2.9); LYMPHOCYTES % (AUTO) 26.6 % (21.0-51.0); MEAN CORPUSCULAR HEMOGLOBIN 32.7 pg (27.0-34.0); MEAN CORPUSCULAR HGB CONC 34.4 g/dL (33.0-35.0); MEAN CORPUSCULAR VOLUME 95.2 fL (80.0-100.0); MEAN PLATELET VOLUME 6.5 fL (7.4-11.0); MONOCYTES # (AUTO) 0.4 x10^3/uL (0.3-0.8); MONOCYTES % (AUTO) 7.2 % (0.0-13.0); NEUTROPHILS # (AUTO) 3.9 x10^3/uL (2.2-4.8); NEUTROPHILS % (AUTO) 63.1 % (42.0-75.0); PLATELET COUNT 223 X10^3/uL (150.0-450.0); RED BLOOD COUNT 3.49 X10^6/uL (3.5-5.4); RED CELL DISTRIBUTION WIDTH 14.2 % (11.6-16.5); WHITE BLOOD COUNT 6.2 X10^3/uL (3.6-10.0)
[2023-02-24] MEDS: DUONEB 0.5 MG/3 MG (3 mL) NEB SCH ×3 (06:13→21:25)
[2023-02-24 06:22] LABS: ALANINE AMINOTRANSFERASE 21 Units/L (12-78); ALBUMIN 2.9 g/dL (3.4-5.0); ALKALINE PHOSPHATASE 83 Units/L (46-116); ASPARTATE AMINO TRANSFERASE 21 Units/L (15-37); BLOOD UREA NITROGEN 6 mg/dL (7-18); CALCIUM 8.5 mg/dL (8.5-10.1); CARBON DIOXIDE 30.2 mmol/L (21-32); CHLORIDE 106 mmol/L (98-107); COR CA(FOR HYPOALB) 9.4 mg/dL (8.5-10.1); CREATININE 0.63 mg/dL (0.55-1.02); GLUCOSE 106 mg/dL (65-99); POTASSIUM 4.3 mmol/L (3.5-5.1); SODIUM 140 mmol/L (136-145); TOTAL PROTEIN 5.7 g/dL (6.4-8.2); eGFR NON BLACK RACES > 60 (>60)
[2023-02-24] MEDS: PULMICORT NEB TX 0.5 MG NEB SCH ×2 (08:42→21:26)
[2023-02-24] MEDS: VANCOMYCIN IV *PREMIX 1 G/200 ML BAG 1 G/200 ML PIGGYBACK IV SCH ×2 (09:15→20:45)
[2023-02-24] MEDS: NICOTINE PATCH TD SCH (09:17)
[2023-02-24] MEDS: LOVENOX INJ 40 MG SYR SC SCH (09:17)
[2023-02-24] MEDS: PriLOSEC PO SCH (09:18)
[2023-02-24] MEDS: CELEXA PO SCH (09:18)
[2023-02-24] MEDS: BRILINTA PO SCH ×2 (09:18→20:45)
[2023-02-24] MEDS: HYDROCHLOROTHIAZIDE 12.5 MG CAP PO SCH (09:18)
[2023-02-24] MEDS: LOPRESSOR TAB 25 MG PO SCH ×2 (09:19→20:42)
[2023-02-24] MEDS: XANAX PO PRN ×2 (09:39→20:43)
--- NOTE | 2023-02-24 12:19 | PCM.PROG ---
Progress Note Progress Note for Day of Date of Exam: 02/24/23 Subjective Subjective: Pt is a 72 year old female admitted for cellulitis and hypokalemia. She is in bed this morning eating breakfast. No acute events overnight. Reports still having pain and some redness but has improved overall. Labs/imaging: Wbc 6.2, Hgb 11.4, Plt 223, Na 140, K 4.3, Creatinine 0.63, Glucose 106, Wound culture positive for MRSA. Cellulitis appears to be improving as area of erythema has decreased a little from marker line. Continue on IV antibiotics: Vancomycin. Hypokalemia resolved. Home medications have been resumed. Continue to closely monitor and follow up labs. Past Medical Family Social History Allergies: Allergies No Known Drug Allergies Allergy (Verified 01/14/20 15:56) Review of Systems ROS: No change since H&P Vital Signs and I&O's Vital Signs: Temperature 97.7 F Pulse Rate [Left] 63 Pulse Rate 65 Respiratory Rate 20 Blood Pressure [Right Calf] 181/79 Blood Pressure [Left Arm] 123/58 Blood Pressure [Right Arm] 241/103 Blood Pressure 135/64 O2 Sat by Pulse Oximetry 97 Intake and Output: Intake & Output 02/21/23 02/22/23 02/23/23 02/24/23 23:59 23:59 23:59 23:59 Intake Total 1325 / 1325 2930 / 2930 200 / 200 Balance 1325 / 1325 2930 / 2930 200 / 200 Physical Exam Oriented: Normal Eyes: Normal Ear: Normal Nose: Normal Throat: Normal Respiratory: Normal Cardiovascular: Normal : Normal Auscultation: Bowel Sounds: Normal Tenderness: Normal Skin: Wound and Other (circular area of erythema right lower extremity) Musculoskeletal: Normal Psychiatric: Normal Mood Description: Calm and Appropriate Affect: Normal Speech Pattern: Clear and Appropriate Laboratory and Diagnostics Result Diagrams: 02/24/23 05:30 02/24/23 05:30 Labs: 02/22/23 08:50 Blood Blood Culture - Preliminary 02/22/23 08:45 Blood Blood Culture - Preliminary 02/22/23 08:57 Leg - Right Wound Gram Stain - Final 02/22/23 08:57 Leg - Right Wound Culture - Preliminary Methicillin Resis Staph Aureus Laboratory WBC 6.2 X10^3/uL (3.6-10.0) 02/24/23 05:30 RBC 3.49 X10^6/uL (3.5-5.4) L 02/24/23 05:30 Hgb 11.4 g/dL (12.0-16.0) L 02/24/23 05:30 Hct 33.2 % (36.0-47.0) L 02/24/23 05:30 MCV 95.2 fL (80.0-100.0) 02/24/23 05:30 MCH 32.7 pg (27.0-34.0) 02/24/23 05:30 MCHC 34.4 g/dL (33.0-35.0) 02/24/23 05:30 RDW 14.2 % (11.6-16.5) 02/24/23 05:30 Plt Count 223 X10^3/uL (150.0-450.0) 02/24/23 05:30 MPV 6.5 fL (7.4-11.0) L 02/24/23 05:30 Neut % (Auto) 63.1 % (42.0-75.0) 02/24/23 05:30 Lymph % (Auto) 26.6 % (21.0-51.0) 02/24/23 05:30 [place] % (Auto) 7.2 % (0.0-13.0) 02/24/23 05:30 Eos % (Auto) 2.4 % (0.9-2.9) 02/24/23 05:30 Baso % (Auto) 0.7 % (0.2-1.0) 02/24/23 05:30 Neut # (Auto) 3.9 x10^3/uL (2.2-4.8) 02/24/23 05:30 Lymph # (Auto) 1.6 X10^3/uL (1.3-2.9) 02/24/23 05:30 [place] # (Auto) 0.4 x10^3/uL (0.3-0.8) 02/24/23 05:30 Eos # (Auto) 0.1 x10^3/uL (0.0-0.2) 02/24/23 05:30 Baso # (Auto) 0.0 X10^3/uL (0.0-0.1) 02/24/23 05:30 Absolute Nucleated RBC 0.1 /100WBC 02/24/23 05:30 Sodium 140 mmol/L (136-145) 02/24/23 05:30 Corrected Sodium TNP 02/24/23 05:30 Potassium 4.3 mmol/L (3.5-5.1) 02/24/23 05:30 Chloride 106 mmol/L (98-107) 02/24/23 05:30 Carbon Dioxide 30.2 mmol/L (21-32) 02/24/23 05:30 BUN 6 mg/dL (7-18) L 02/24/23 05:30 Creatinine 0.63 mg/dL (0.55-1.02) 02/24/23 05:30 Est GFR (MDRD) Af Amer > 60 (>60) 02/24/23 05:30 Est GFR (MDRD) Non-Af > 60 (>60) 02/24/23 05:30 Glucose 106 mg/dL (65-99) H 02/24/23 05:30 Lactic Acid 1.0 mmol/L (0.4-2.0) 02/22/23 08:45 Calcium 8.5 mg/dL (8.5-10.1) 02/24/23 05:30 Corrected Calcium 9.4 mg/dL (8.5-10.1) 02/24/23 05:30 Magnesium 1.8 mg/dL (2.0-2.9) L 02/23/23 04:38 Total Bilirubin 0.20 mg/dL (0.2-1.0) 02/24/23 05:30 AST 21 Units/L (15-37) 02/24/23 05:30 ALT 21 Units/L (12-78) 02/24/23 05:30 Alkaline Phosphatase 83 Units/L (46-116) 02/24/23 05:30 Total Protein 5.7 g/dL (6.4-8.2) L 02/24/23 05:30 Albumin 2.9 g/dL (3.4-5.0) L 02/24/23 05:30 Globulin 2.8 g/dL (2.5-4.5) 02/24/23 05:30 Albumin/Globulin Ratio 1.0 Ratio (1.1-2.1) L 02/24/23 05:30 Specimen Type Clean catch urine 02/22/23 09:21 Urine Color Pale yellow (YELLOW) 02/22/23 09:21 Urine Appearance Slightly hazy (CLEAR) 02/22/23 09:21 Urine pH 7.0 (5.0 - 8.0) 02/22/23 09:21 Ur Specific [place] 1.010 (1.000-1.030) 02/22/23 09:21 Urine Protein Negative (NEGATIVE) 02/22/23 09:21 Urine Glucose (UA) Negative (NEGATIVE) 02/22/23 09:21 Urine Ketones Negative (NEGATIVE) 02/22/23 09:21 Urine Blood 3+ (NEGATIVE) 02/22/23 09:21 Urine Nitrite Negative (NEGATIVE) 02/22/23 09:21 Urine Bilirubin Negative (NEGATIVE) 02/22/23 09:21 Urine Urobilinogen Normal (NORMAL) 02/22/23 09:21 Ur Leukocyte Esterase 2+ (NEGATIVE) 02/22/23 09:21 Urine RBC 3-5 /HPF (0-3) A 02/22/23 09:21 Urine WBC 0-2 /HPF (0-5) 02/22/23 09:21 Ur Squamous Epith Cells Rare /HPF (NEGATIVE) 02/22/23 09:21 Urine Bacteria Negative /HPF (NEGATIVE) 02/22/23 09:21 Ur Culture Indicated? No/not indicated 02/22/23 09:21 Vancomycin Trough 14.8 ug/mL (15-20) L 02/23/23 20:38 Plan (1) Cellulitis of leg, right: Status: Acute Plan: IV antibiotics Wound culture MRSA (2) Hypokalemia: Status: Acute Plan: Resolved (3) Hypertension: Status: Chronic (4) Generalized anxiety disorder: Status: Chronic (5) CAD (coronary artery disease): Status: Chronic (6) Primary osteoarthritis of lumbar spine: Status: Chronic
[2023-02-24] MEDS: LIPITOR TAB 40 MG PO SCH (20:43)
[2023-02-24] MEDS: NORVASC TAB 5 MG PO SCH (20:44)
[2023-02-25] MEDS: PERCOCET TAB 5/325 MG PO PRN ×2 (05:36→14:21)
[2023-02-25 06:08] LABS: BASOPHILS % (AUTO) 0.6 % (0.2-1.0); EOSINOPHILS # (AUTO) 0.2 x10^3/uL (0.0-0.2); HEMATOCRIT 37.8 % (36.0-47.0); HEMOGLOBIN 12.6 g/dL (12.0-16.0); LYMPHOCYTES # (AUTO) 1.6 X10^3/uL (1.3-2.9); LYMPHOCYTES % (AUTO) 24.4 % (21.0-51.0); MEAN CORPUSCULAR HGB CONC 33.5 g/dL (33.0-35.0); MEAN CORPUSCULAR VOLUME 95.5 fL (80.0-100.0); MEAN PLATELET VOLUME 6.6 fL (7.4-11.0); MONOCYTES # (AUTO) 0.4 x10^3/uL (0.3-0.8); MONOCYTES % (AUTO) 6.3 % (0.0-13.0); NEUTROPHILS # (AUTO) 4.2 x10^3/uL (2.2-4.8); NEUTROPHILS % (AUTO) 65.7 % (42.0-75.0); PLATELET COUNT 261 X10^3/uL (150.0-450.0); RED BLOOD COUNT 3.96 X10^6/uL (3.5-5.4); RED CELL DISTRIBUTION WIDTH 14.4 % (11.6-16.5); WHITE BLOOD COUNT 6.4 X10^3/uL (3.6-10.0)
[2023-02-25] MEDS: DUONEB 0.5 MG/3 MG (3 mL) NEB SCH ×2 (06:18→13:19)
[2023-02-25 06:26] LABS: ALANINE AMINOTRANSFERASE 25 Units/L (12-78); ALBUMIN 3.4 g/dL (3.4-5.0); ALKALINE PHOSPHATASE 98 Units/L (46-116); ASPARTATE AMINO TRANSFERASE 25 Units/L (15-37); BLOOD UREA NITROGEN 9 mg/dL (7-18); CALCIUM 8.9 mg/dL (8.5-10.1); CARBON DIOXIDE 28.8 mmol/L (21-32); CHLORIDE 104 mmol/L (98-107); CREATININE 0.68 mg/dL (0.55-1.02); GLUCOSE 91 mg/dL (65-99); POTASSIUM 4.1 mmol/L (3.5-5.1); SODIUM 141 mmol/L (136-145); TOTAL PROTEIN 6.8 g/dL (6.4-8.2); eGFR NON BLACK RACES > 60 (>60)
[2023-02-25] MEDS: PULMICORT NEB TX 0.5 MG NEB SCH (08:46)
[2023-02-25] MEDS: LOVENOX INJ 40 MG SYR SC SCH (09:00)
[2023-02-25] MEDS: VANCOMYCIN IV *PREMIX 1 G/200 ML BAG 1 G/200 ML PIGGYBACK IV SCH (10:00)
[2023-02-25] MEDS: NICOTINE PATCH TD SCH (10:00)
[2023-02-25] MEDS: CELEXA PO SCH (10:54)
[2023-02-25] MEDS: BRILINTA PO SCH (10:54)
[2023-02-25] MEDS: PriLOSEC PO SCH (11:45)
[2023-02-25 12:13] VITALS: BP 140/65
[2023-02-25] MEDS ORDERED: XYLOCAINE 1 % (PLAIN) ONE (14:13)
[2023-02-25] MEDS: XANAX PO PRN (14:18)
[2023-02-25] MEDS: HYDROCHLOROTHIAZIDE 12.5 MG CAP PO SCH (15:31)
[2023-02-25] MEDS: LOPRESSOR TAB 25 MG PO SCH (15:31)
--- NOTE | 2023-02-26 08:46 | W.DIS.FURT ---
Summary of Discharge Discharge Summary of Date Date of Exam: 02/25/23 Admission Date Date of Admission: 02/22/23 Admission Diagnosis Patient Problems (Updated 02/23/23 @ 09:08 by Chris Rock) Cellulitis of leg, right (Acute) L03.115 Hospital Course: Pt is a 72 year old female admitted for cellulitis and hypokalemia. Her hospital/treatment course included: IV antibiotics: Vancomycin. Hypokalemia r esolved after supplementation. Labs/imaging: Wbc 6.4, Hgb 12.6, Plt 261, Na 141, K 4.1, Creatinine 0.68, Glucose 91, Wound culture positive for MRSA. Pt responded well to treatment. Cellulitis significantly improved. General Surgery- Dr Root consulted and will follow up outpatient. Rx Levaquin x 10 days. Pt discharged in stable condition. Instructed to follow up with pcp and General Surgery in 1 week. Vital Signs: Vital Signs (72 hours) 02/23/23 09:26 02/23/23 10:09 02/23/23 11:16 Temperature 97.3 F L Pulse Rate Pulse Rate [Left] 70 Respiratory Rate 20 18 Blood Pressure [Left Arm] 117/56 O2 Sat by Pulse Oximetry 95 Oxygen Delivery Method Room Air Room Air FIO2% 21 02/23/23 11:09 02/23/23 16:00 02/23/23 19:21 Temperature 98.9 F Pulse Rate Pulse Rate [Left] 69 Respiratory Rate 21 20 21 Blood Pressure [Left Arm] 112/82 O2 Sat by Pulse Oximetry 98 Oxygen Delivery Method Room Air FIO2% 02/23/23 19:00 02/23/23 20:21 02/23/23 20:00 Temperature 97.7 F Pulse Rate Pulse Rate [Left] 72 Respiratory Rate 21 19 Blood Pressure [Left Arm] 130/59 O2 Sat by Pulse Oximetry 96 Oxygen Delivery Method Room Air Room Air FIO2% 02/23/23 20:10 02/23/23 20:10 02/23/23 23:52 Temperature 98 F Pulse Rate 78 Pulse Rate [Left] 69 Respiratory Rate 20 Blood Pressure [Left Arm] 118/56 O2 Sat by Pulse Oximetry 96 95 Oxygen Delivery Method Room Air Room Air FIO2% 02/24/23 02:54 02/24/23 03:54 02/24/23 04:00 Temperature 98 F Pulse Rate Pulse Rate [Left] 60 Respiratory Rate 20 20 19 Blood Pressure [Left Arm] 119/58 O2 Sat by Pulse Oximetry 94 L Oxygen Delivery Method Room Air FIO2% 02/24/23 11:02 02/24/23 08:42 02/24/23 07:00 Temperature Pulse Rate 65 Pulse Rate [Left] Respiratory Rate 20 Blood Pressure [Left Arm] O2 Sat by Pulse Oximetry 97 Oxygen Delivery Method Room Air FIO2% 02/24/23 08:00 02/24/23 16:26 02/24/23 12:00 Temperature 97.7 F 98.1 F Pulse Rate Pulse Rate [Left] 63 68 Respiratory Rate 18 21 18 Blood Pressure [Left Arm] 123/58 121/58 O2 Sat by Pulse Oximetry 97 95 Oxygen Delivery Method Room Air Room Air FIO2% 02/24/23 16:00 02/24/23 17:26 02/24/23 12:02 Temperature 98.3 F Pulse Rate Pulse Rate [Left] 59 L Respiratory Rate 18 21 20 Blood Pressure [Left Arm] 107/53 O2 Sat by Pulse Oximetry 96 Oxygen Delivery Method Room Air FIO2% 02/24/23 19:00 02/24/23 20:00 02/24/23 21:26 Temperature 98.2 F Pulse Rate 76 Pulse Rate [Left] 65 Respiratory Rate 20 Blood Pressure [Left Arm] 117/57 O2 Sat by Pulse Oximetry 96 96 Oxygen Delivery Method Room Air Room Air FIO2% 02/24/23 21:27 02/24/23 23:28 02/25/23 03:50 Temperature 97.8 F 98.1 F Pulse Rate Pulse Rate [Left] 69 71 Respiratory Rate 18 20 Blood Pressure [Left Arm] 121/56 123/58 O2 Sat by Pulse Oximetry 96 96 Oxygen Delivery Method Room Air Room Air Room Air FIO2% 02/25/23 05:36 02/25/23 06:36 02/25/23 08:00 Temperature 98.2 F Pulse Rate Pulse Rate [Left] 81 Respiratory Rate 21 21 18 Blood Pressure [Left Arm] 154/67 O2 Sat by Pulse Oximetry 96 Oxygen Delivery Method Room Air FIO2% 02/25/23 08:46 02/25/23 07:00 02/25/23 12:00 Temperature 97.9 F Pulse Rate 62 Pulse Rate [Left] 59 L Respiratory Rate 18 Blood Pressure [Left Arm] 140/65 O2 Sat by Pulse Oximetry 92 L 95 Oxygen Delivery Method Room Air Room Air FIO2% 02/25/23 14:21 02/25/23 15:21 Temperature Pulse Rate Pulse Rate [Left] Respiratory Rate 20 20 Blood Pressure [Left Arm] O2 Sat by Pulse Oximetry Oxygen Delivery Method FIO2% Labs: Laboratory Last Values WBC 6.4 X10^3/uL (3.6-10.0) 02/25/23 05:14 RBC 3.96 X10^6/uL (3.5-5.4) 02/25/23 05:14 Hgb 12.6 g/dL (12.0-16.0) 02/25/23 05:14 Hct 37.8 % (36.0-47.0) 02/25/23 05:14 MCV 95.5 fL (80.0-100.0) 02/25/23 05:14 MCH 32.0 pg (27.0-34.0) 02/25/23 05:14 MCHC 33.5 g/dL (33.0-35.0) 02/25/23 05:14 RDW 14.4 % (11.6-16.5) 02/25/23 05:14 Plt Count 261 X10^3/uL (150.0-450.0) 02/25/23 05:14 MPV 6.6 fL (7.4-11.0) L 02/25/23 05:14 Neut % (Auto) 65.7 % (42.0-75.0) 02/25/23 05:14 Lymph % (Auto) 24.4 % (21.0-51.0) 02/25/23 05:14 [place] % (Auto) 6.3 % (0.0-13.0) 02/25/23 05:14 Eos % (Auto) 3.0 % (0.9-2.9) H 02/25/23 05:14 Baso % (Auto) 0.6 % (0.2-1.0) 02/25/23 05:14 Neut # (Auto) 4.2 x10^3/uL (2.2-4.8) 02/25/23 05:14 Lymph # (Auto) 1.6 X10^3/uL (1.3-2.9) 02/25/23 05:14 [place] # (Auto) 0.4 x10^3/uL (0.3-0.8) 02/25/23 05:14 Eos # (Auto) 0.2 x10^3/uL (0.0-0.2) 02/25/23 05:14 Baso # (Auto) 0.0 X10^3/uL (0.0-0.1) 02/25/23 05:14 Absolute Nucleated RBC 0.1 /100WBC 02/25/23 05:14 Sodium 141 mmol/L (136-145) 02/25/23 05:14 Corrected Sodium TNP 02/25/23 05:14 Potassium 4.1 mmol/L (3.5-5.1) 02/25/23 05:14 Chloride 104 mmol/L (98-107) 02/25/23 05:14 Carbon Dioxide 28.8 mmol/L (21-32) 02/25/23 05:14 BUN 9 mg/dL (7-18) 02/25/23 05:14 Creatinine 0.68 mg/dL (0.55-1.02) 02/25/23 05:14 Est GFR (MDRD) Af Amer > 60 (>60) 02/25/23 05:14 Est GFR (MDRD) Non-Af > 60 (>60) 02/25/23 05:14 Glucose 91 mg/dL (65-99) 02/25/23 05:14 Lactic Acid 1.0 mmol/L (0.4-2.0) 02/22/23 08:45 Calcium 8.9 mg/dL (8.5-10.1) 02/25/23 05:14 Corrected Calcium TNP 02/25/23 05:14 Magnesium 1.8 mg/dL (2.0-2.9) L 02/23/23 04:38 Total Bilirubin 0.20 mg/dL (0.2-1.0) 02/25/23 05:14 AST 25 Units/L (15-37) 02/25/23 05:14 ALT 25 Units/L (12-78) 02/25/23 05:14 Alkaline Phosphatase 98 Units/L (46-116) 02/25/23 05:14 Total Protein 6.8 g/dL (6.4-8.2) 02/25/23 05:14 Albumin 3.4 g/dL (3.4-5.0) 02/25/23 05:14 Globulin 3.4 g/dL (2.5-4.5) 02/25/23 05:14 Albumin/Globulin Ratio 1.0 Ratio (1.1-2.1) L 02/25/23 05:14 Specimen Type Clean catch urine 02/22/23 09:21 Urine Color Pale yellow (YELLOW) 02/22/23 09:21 Urine Appearance Slightly hazy (CLEAR) 02/22/23 09:21 Urine pH 7.0 (5.0 - 8.0) 02/22/23 09:21 Ur Specific [place] 1.010 (1.000-1.030) 02/22/23 09:21 Urine Protein Negative (NEGATIVE) 02/22/23 09:21 Urine Glucose (UA) Negative (NEGATIVE) 02/22/23 09:21 Urine Ketones Negative (NEGATIVE) 02/22/23 09:21 Urine Blood 3+ (NEGATIVE) 02/22/23 09:21 Urine Nitrite Negative (NEGATIVE) 02/22/23 09:21 Urine Bilirubin Negative (NEGATIVE) 02/22/23 09:21 Urine Urobilinogen Normal (NORMAL) 02/22/23 09:21 Ur Leukocyte Esterase 2+ (NEGATIVE) 02/22/23 09:21 Urine RBC 3-5 /HPF (0-3) A 02/22/23 09:21 Urine WBC 0-2 /HPF (0-5) 02/22/23 09:21 Ur Squamous Epith Cells Rare /HPF (NEGATIVE) 02/22/23 09:21 Urine Bacteria Negative /HPF (NEGATIVE) 02/22/23 09:21 Ur Culture Indicated? No/not indicated 02/22/23 09:21 Vancomycin Trough 14.8 ug/mL (15-20) L 02/23/23 20:38 Reason For Visit: RIGHT LOWER EXTREMITY CELLULITIS WITH FAILED OUTPT Discharge Date Discharge Date: 02/25/23 Discharge Diagnosis All Active Problems (Updated 02/23/23 @ 09:08 by Chris Rock) Hypokalemia (Acute) Cellulitis of leg, right (Acute) Vaginal venereal warts (Acute) Hyperlipidemia (Acute) CAD (coronary artery disease) (Chronic) COPD exacerbation (Acute) Bronchitis (Acute) Hypertensive urgency (Acute) Chronic pain (Chronic) COPD (chronic obstructive pulmonary disease) (Chronic) History of diverticulosis (Chronic) Chronic back pain (Chronic) History of CVA (cerebrovascular accident) (Chronic) Hypertension (Chronic) Osteoporosis (Chronic) Degenerative disc disease (Chronic) Generalized anxiety disorder (Chronic) Primary osteoarthritis of lumbar spine (Chronic) Plan of Treatment: Continue with present treatment and follow up plan. Pt is to keep follow up appointment as instructed and take medications as ordered. Discharge Medications Discharge Medications: No Known Drug Allergies Allergy (Verified 01/14/20 15:56) CONTINUE taking the following medications metoprolol tartrate 25 mg tablet 12.5 mg PO BID 02/22/23 [History] ondansetron HCl 4 mg tablet 4 mg PO Q6HR 02/22/23 [History] ticagrelor 90 mg tablet (Brilinta) 90 mg PO BID 02/22/23 [History] New Prescriptions levofloxacin 500 mg tablet 500 mg PO QDAY #10 tabs 02/25/23 [Rx] mupirocin 2 % topical ointment 1 applic topical DAILY 10 days #60 grams 02/25/23 [Rx] Discharge Disposition Assessment: No acute distress noted at time of discharge. Discharge Plan Discharge Plan Hospital Course: Pt is a 72 year old female admitted for cellulitis and hypokalemia. Her hospital/treatment course included: IV antibiotics: Vancomycin. Hypokalemia resolved after supplementation. Labs/imaging: Wbc 6.4, Hgb 12.6, Plt 261, Na 141, K 4.1, Creatinine 0.68, Glucose 91, Wound culture positive for MRSA. Pt responded well to treatment. Cellulitis significantly improved. General Surgery- Dr Root consulted and will follow up outpatient. Rx Levaquin x 10 days. Pt discharged in stable condition. Instructed to follow up with pcp and General Surgery in 1 week. Patient Disposition: HOME HEALTH SERVICE Condition: Stable Health Concerns: Post Hospitalization: new medications and changes needed to prevent readmission or further decline. Pt educated and given instructions on all concerns. Care Plan Goals: Problem: Infection Goal: Temperature within normal limits. Resolved infection. Instructions: Follow provided instructions. Follow up with primary physician as directed. Contact primary care physician or report to the closest Emergency Room if condition worsens. Plan of Treatment: Continue with present treatment and follow up plan. Pt is to keep follow up appointment as instructed and take medications as ordered. Assessment: No acute distress noted at time of discharge. Prescriptions: New mupirocin 2 % Ointment 1 applic TOPICAL DAILY 10 Days Qty: 60 0RF levofloxacin 500 mg Tablet 500 mg PO QDAY Qty: 10 0RF Discontinued amoxicillin 500 mg capsule 500 mg PO DAILY No Action citalopram 40 mg tablet 40 mg PO QDAY Qty: 90 0RF amlodipine 10 mg tablet 10 mg PO QPM Qty: 90 0RF hydrochlorothiazide 12.5 mg tablet 12.5 mg PO QAM Qty: 90 0RF omeprazole 40 mg capsule,delayed release(DR/EC) 40 mg PO DAILY 30 Days Qty: 30 3RF atorvastatin [Lipitor] 40 mg tablet 40 mg PO QHS 30 Days Qty: 30 3RF alprazolam 1 mg tablet 1 mg PO BID MDD 2 30 Days Qty: 60 0RF Rx Instructions: FreeTextSi Tablet two times daily for anxiety; Refills: 0; Provider: Pranav Perez oxycodone-acetaminophen 10-325 mg tablet 1 tab PO QID MDD 4 30 Days Qty: 120 0RF Rx Instructions: FreeTextSi Tablet four times daily, as needed; Refills: 0; Provider: Pranav Perez Brilinta 90 mg tablet 90 mg PO BID metoprolol tartrate 25 mg tablet 12.5 mg PO BID ondansetron HCl 4 mg tablet 4 mg PO Q6HR budesonide-formoterol [Symbicort] 160-4.5 mcg/actuation HFA aerosol inhaler 2 inh INHALATION BID Follow ups/Referrals Follow ups/Referrals: Chris Rock [Primary Care Provider] - 03/03/23 1:30 pm RYAN VALDOVINOS [STAFF PHYSICIAN] - 03/10/23 1:40 pm Instructions Instructions: Steps to Quit Smoking, [id number], Health Risks of Smoking, How to Change Your Wound Dressing, MRSA Infection, Self-Care, Adult, Mechanical Wound Debridement, Cellulitis, Adult, [id number], Infection Prevention in the Home Stand Alone Forms: Excuse From Work or School, [facility]
== END 2023-02-25 16:00 | disposition home health service (06) ==
LOC: ER 07:42 → MED/SURG 07:42
PROVIDERS: ADMIT Family Medicine; ATTEND Family Medicine
DX: L03.115 Cellulitis of right lower limb; F41.1 Generalized anxiety disorder; M47.816 Spondylosis without myelopathy or radiculopathy, lumbar region; E87.6 Hypokalemia; E78.2 Mixed hyperlipidemia; I25.10 Atherosclerotic heart disease of native coronary artery without angina pectoris; B95.62 Methicillin resistant Staphylococcus aureus infection as the cause of diseases classified elsewhere; I10 Essential (primary) hypertension